=== PATIENT | male | born 1950 | race Caucasian/White ===

== ENCOUNTER → 2020-04-30 | Outpatient (CLI) | payer MEDICARE ==
--- NOTE | 2020-05-01 13:09 | ECHOF ---
Referral Reason:R01.1 murmur MEASUREMENTS -------- HEIGHT: 180.3 cm WEIGHT: 85.7 kg BP: IVSd: 1.3 cm (0.6 - 1.1) LVIDd: 4.2 cm (3.9 - 5.3) LVPWd: 1.8 cm (0.6 - 1.1) IVSs: 2.0 cm LVIDs: 2.7 cm LVPWs: 2.3 cm LAESV Index (A-L): 21.92 ml/m Ao Diam: 4.2 cm (2.0 - 3.7) AV Cusp: 2.4 cm (1.5 - 2.6) MV EXCURSION: 10.955 mm (> 18.000) MV EF SLOPE: 61 mm/s (70 - 150) EPSS: 0.7 cm MV E Moises: 1.18 m/s MV DecT: 96 ms MV A Moises: 0.80 m/s MV E/A Ratio: 1.47 AV maxP.49 mmHg AV maxP.49 mmHg AV meanP.71 mmHg AR PHT: 400 ms RAP: 5.00 mmHg RVSP: 41.34 mmHg FINDINGS -------- Sinus rhythm. This was a technically adequate study. The left ventricular size is normal. There is mild concentric left ventricular hypertrophy. Overa ll left ventricular systolic function is normal with, an EF between 55 - 60 %. The diastolic fillin g pattern is normal for the age of the patient 15.20. The right ventricle is normal in size. Normal LA size by volume 22+/-6 ml/m2. The right atrial size is normal. Interatrial and interventricular septum intact. There is moderate to severe aortic valve sclerosis. There is moderate aortic regurgitation. There is mild aortic stenosis present. Peak/mean gradient across the Aortic Valve is 20.49mmHg / 10.71mm Hg. There is trace mitral regurgitation. Mild tricuspid regurgitation present. There is mild pulmonary hypertension. The right ventricular systolic pressure, as measured by Doppler, is 41.34mmHg. There is no pulmonic regurgitation present. The aortic root is dilated measuring 4.2cm. Normal inferior vena cava with normal inspiratory collapse consistent with estimated right atrial pre ssure of 5 mmHg. There is no pericardial effusion. CONCLUSIONS -------- 1. The left ventricular size is normal. 2. There is mild concentric left ventricular hypertrophy. 3. Overall left ventricular systolic function is normal with, an EF between 55 - 60 %. 4. The diastolic filling pattern is normal for the age of the patient 15.20 5. There is moderate to severe aortic valve sclerosis. 6. There is moderate aortic regurgitation. 7. There is mild aortic stenosis present. 8. Peak/mean gradient across the Aortic Valve is 20.49mmHg / 10.71mmHg. 9. There is trace mitral regurgitation. 10. Mild tricuspid regurgitation present. 11. There is mild pulmonary hypertension. 12. The right ventricular systolic pressure, as measured by Doppler, is 41.34mmHg. 13. The aortic root is dilated measuring 4.2cm. CULINARY ARTIST: Yasmin Garcia RDCS
== END | disposition home or self-care (01) ==
LOC: RADECHMAIN 11:34
PROVIDERS: ATTEND Nurse Practitioner Family
DX: I08.2 Rheumatic disorders of both aortic and tricuspid valves (principal); I27.20 Pulmonary hypertension, unspecified; I77.810 Thoracic aortic ectasia
CPT/HCPCS: 93306

== ENCOUNTER 2021-07-01 15:37 | Inpatient (IN) | payer MEDICARE ==
[2021-07-01 16:12] LABS: Basophils % (A) 1 %; Eosinophils % (A) 0 %; HCT 43.1 % (39.0-53.0); HGB 15.4 gm/dL (13.0-17.5); Lymphocytes # (A) 0.2 k/uL (1.0-4.8); Lymphocytes % (A) 5 %; MCH 33.7 pg (25.0-35.0); MCHC 35.7 g/dL (31.0-37.0); MCV 94.3 fL (80.0-100.0); Mean Platelet Volume 8.4; Monocytes # (A) 0.2 k/uL (0-1.0); Monocytes % (A) 4 %; Neutrophils # (A) 3.8 k/uL (1.3-7.7); Neutrophils % (A) 87 %; Platelet Count 195 k/uL (150-450); RBC 4.58 m/uL (4.30-5.90); RDW 12.7 % (11.5-15.5); WBC 4.4 k/uL (3.8-10.6)
--- NOTE | 2021-07-01 16:13 | ED ---
General Adult HPI - General Chief complaint: GI Bleed Stated complaint: GI Bleed Time Seen by Provider: 07/01/21 15:41 Source: patient, EMS Mode of arrival: EMS Limitations: no limitations - History of Present Illness Initial comments: Dictation was produced using [employer] dictation software. please excuse any grammatical, word or spelling errors. Chief Complaint: 71-year-old male presents to the emergency department for melanotic stool History of Present Illness: Patient is a 71-year-old male is brought in by EMS. He reports that he is had melanotic stool daily for the last 7 days. Patient denies any medical problems. Doesn't take any and a coagulation medications. Patient is also found to be hypoxic with a room air saturation in the 80 percents. My nurse Asa patient on 4 L nasal cannula. Patient is a mild cough. Denies any shortness of breath. Patient is not taking any iron supplementation. Denies any abdominal pain or rectal pain. Daughter at the bedside reports that patient did appear very pale when EMS first arrived at the house. The ROS documented in this emergency department record has been reviewed and confirmed by me. Those systems with pertinent positive or negative responses have been documented in the HPI. All other systems are other negative and/or noncontributory. PHYSICAL EXAM: General Impression: Alert and oriented x3, not in acute distress HEENT: Normocephalic atraumatic, extra-ocular movements intact, pupils equal and reactive to light bilaterally, mucous membranes moist. Cardiovascular: Heart regular rate and rhythm Chest: Able to complete full sentences, no retractions, no tachypnea Abdomen: abdomen soft, non-tender, non-distended, no organomegaly Musculoskeletal: Pulses present and equal in all extremities, no peripheral edema Motor: no focal deficits noted Neurological: CN II-XII grossly intact, no focal motor or sensory deficits noted Skin: Intact with no visualized rashes Psych: Normal affect and mood Rectal exam: No gross blood he does have skin tags to his anus ED course: 71-year-old male with chief complaint of 7 days of melanotic stool. Vital signs upon arrival shows 105, A. fib with RVR, normal blood pressure, 94% on 4 L nasal cannula. His EKG shows A. fib. He denies any medical problems. Concerning for new onset A. fib She was hypoxic and required nasal cannula oxygen. His pulse oximetry improved with supplemental oxygen. CBC is unremarkable. Coag panel is negative. Hemoglobin is not decreased. Metabolic panel shows sodium 128. Troponin 0.028, BNP 1007-70. Still, but is positive. Rotavirus is detected. Chest x-ray shows pneumonia. Click or presentation consistent with COVID-19 pneumonia. Patient given Decadron Protonix. Given patient's new-onset A. fib and GI bleed we will withhold anticoagulation medications at this time ending d-dimer studies. Patient be admitted to [facility]. Case discussed with Dr. Mott EKG interpretation: Ventricular rate 105, A. fib with RVR, QRS 94, QTC 459. no QTC prolongation, no ST or T-wave changes noted. - Related Data Allergies Allergy/AdvReac Type Severity Reaction Status Date / Time No Known Allergies Allergy Verified 07/01/21 15:58 Review of Systems ROS Statement: Those systems with pertinent positive or pertinent negative responses have been documented in the HPI. ROS Other: All systems not noted in ROS Statement are negative. Past Medical History Past Medical History: No Reported History History of Any Multi-Drug Resistant Organisms: None Reported Past Surgical History: Hernia Repair Past Psychological History: No Psychological Hx Reported Smoking Status: Former smoker Past Alcohol Use History: None Reported General Exam Limitations: no limitations Course Vital Signs 07/01/21 07/01/21 15:39 15:43 Temperature 99.3 F Pulse Rate 96 Respiratory 18 Rate Blood Pressure 124/89 O2 Sat by Pulse 94 L Oximetry Medical Decision Making - Lab Data Result diagrams: 07/01/21 15:59 07/01/21 15:59 Lab Results 07/01/21 07/01/21 07/01/21 Range/Units 15:50 15:55 15:59 WBC 4.4 (3.8-10.6) k/uL RBC 4.58 (4.30-5.90) m/uL Hgb 15.4 (13.0-17.5) gm/dL Hct 43.1 (39.0-53.0) % MCV 94.3 (80.0-100.0) fL MCH 33.7 (25.0-35.0) pg MCHC 35.7 (31.0-37.0) g/dL RDW 12.7 (11.5-15.5) % Plt Count 195 (150-450) k/uL MPV 8.4 Neutrophils % 87 % Lymphocytes % 5 % Monocytes % 4 % Eosinophils % 0 % Basophils % 1 % Neutrophils # 3.8 (1.3-7.7) k/uL Lymphocytes # 0.2 L (1.0-4.8) k/uL Monocytes # 0.2 (0-1.0) k/uL Eosinophils # 0.0 (0-0.7) k/uL Basophils # 0.0 (0-0.2) k/uL PT (9.0-12.0) sec INR (<1.2) APTT (22.0-30.0) sec Sodium (137-145) mmol/L Potassium (3.5-5.1) mmol/L Chloride (98-107) mmol/L Carbon Dioxide (22-30) mmol/L Anion Gap mmol/L BUN (9-20) mg/dL Creatinine (0.66-1.25) mg/dL Est GFR (CKD-EPI)AfAm (>60 ml/min/1.73 sqM) Est GFR (CKD-EPI)NonAf (>60 ml/min/1.73 sqM) Glucose (74-99) mg/dL Calcium (8.4-10.2) mg/dL Magnesium (1.6-2.3) mg/dL Total Bilirubin (0.2-1.3) mg/dL AST (17-59) U/L ALT (4-49) U/L Alkaline Phosphatase (38-126) U/L Troponin I (0.000-0.034) ng/mL NT-Pro-B Natriuret Pep pg/mL Total Protein (6.3-8.2) g/dL Albumin (3.5-5.0) g/dL Stool Occult Blood (Negative) Coronavirus (PCR) (Not Detectd) Blood Type O Positive Blood Type Confirm O Positive Blood Type Recheck No Previous Record Bld Type Recheck Status CABO Indicated Antibody Screen NEGATIVE Spec Expiration Date 07/04/2021 - 234907/01/21 07/01/21 07/01/21 Range/Units 15:59 15:59 16:05 WBC (3.8-10.6) k/uL RBC (4.30-5.90) m/uL Hgb (13.0-17.5) gm/dL Hct (39.0-53.0) % MCV (80.0-100.0) fL MCH (25.0-35.0) pg MCHC (31.0-37.0) g/dL RDW (11.5-15.5) % Plt Count (150-450) k/uL MPV Neutrophils % % Lymphocytes % % Monocytes % % Eosinophils % % Basophils % % Neutrophils # (1.3-7.7) k/uL Lymphocytes # (1.0-4.8) k/uL Monocytes # (0-1.0) k/uL Eosinophils # (0-0.7) k/uL Basophils # (0-0.2) k/uL PT 11.9 (9.0-12.0) sec INR 1.1 (<1.2) APTT 23.6 (22.0-30.0) sec Sodium 128 L (137-145) mmol/L Potassium 3.8 (3.5-5.1) mmol/L Chloride 91 L (98-107) mmol/L Carbon Dioxide 29 (22-30) mmol/L Anion Gap 8 mmol/L BUN 20 (9-20) mg/dL Creatinine 0.67 (0.66-1.25) mg/dL Est GFR (CKD-EPI)AfAm >90 (>60 ml/min/1.73 sqM) Est GFR (CKD-EPI)NonAf >90 (>60 ml/min/1.73 sqM) Glucose 128 H (74-99) mg/dL Calcium 7.6 L (8.4-10.2) mg/dL Magnesium 2.2 (1.6-2.3) mg/dL Total Bilirubin 1.0 (0.2-1.3) mg/dL AST 104 H (17-59) U/L ALT 56 H (4-49) U/L Alkaline Phosphatase 22 L (38-126) U/L Troponin I 0.028 (0.000-0.034) ng/mL NT-Pro-B Natriuret Pep pg/mL Total Protein 5.3 L (6.3-8.2) g/dL Albumin 2.7 L (3.5-5.0) g/dL Stool Occult Blood (Negative) Coronavirus (PCR) (Not Detectd) Blood Type Blood Type Confirm Blood Type Recheck Bld Type Recheck Status Antibody Screen Spec Expiration Date 07/01/21 07/01/21 07/01/21 Range/Units 16:05 16:09 16:09 WBC (3.8-10.6) k/uL RBC (4.30-5.90) m/uL Hgb (13.0-17.5) gm/dL Hct (39.0-53.0) % MCV (80.0-100.0) fL MCH (25.0-35.0) pg MCHC (31.0-37.0) g/dL RDW (11.5-15.5) % Plt Count (150-450) k/uL MPV Neutrophils % % Lymphocytes % % Monocytes % % Eosinophils % % Basophils % % Neutrophils # (1.3-7.7) k/uL Lymphocytes # (1.0-4.8) k/uL Monocytes # (0-1.0) k/uL Eosinophils # (0-0.7) k/uL Basophils # (0-0.2) k/uL PT (9.0-12.0) sec INR (<1.2) APTT (22.0-30.0) sec Sodium (137-145) mmol/L Potassium (3.5-5.1) mmol/L Chloride (98-107) mmol/L Carbon Dioxide (22-30) mmol/L Anion Gap mmol/L BUN (9-20) mg/dL Creatinine (0.66-1.25) mg/dL Est GFR (CKD-EPI)AfAm (>60 ml/min/1.73 sqM) Est GFR (CKD-EPI)NonAf (>60 ml/min/1.73 sqM) Glucose (74-99) mg/dL Calcium (8.4-10.2) mg/dL Magnesium (1.6-2.3) mg/dL Total Bilirubin (0.2-1.3) mg/dL AST (17-59) U/L ALT (4-49) U/L Alkaline Phosphatase (38-126) U/L Troponin I (0.000-0.034) ng/mL NT-Pro-B Natriuret Pep 1770 pg/mL Total Protein (6.3-8.2) g/dL Albumin (3.5-5.0) g/dL Stool Occult Blood Positive (Negative) Coronavirus (PCR) Detected A (Not Detectd) Blood Type Blood Type Confirm Blood Type Recheck Bld Type Recheck Status Antibody Screen Spec Expiration Date Critical Care Time Critical Care Time: Yes Total Critical Care Time: 33 Disposition Clinical Impression: COVID-19, New onset a-fib, GI bleed Disposition: ADMITTED IP TO THIS [facility] Condition: Critical Referrals: None,Stated [Primary Care Provider] - 1-2 days
[2021-07-01 16:23] LABS: ALT 56 U/L (4-49); AST 104 U/L (17-59); African American GFR (CKD) >90 (>60 ml/min/1.73 sqM); Albumin 2.7 g/dL (3.5-5.0); Alkaline Phosphatase 22 U/L (38-126); Anion Gap 8 mmol/L; Blood Urea Nitrogen 20 mg/dL (9-20); Calcium 7.6 mg/dL (8.4-10.2); Carbon Dioxide 29 mmol/L (22-30); Chloride 91 mmol/L (98-107); Glucose 128 mg/dL (74-99); Magnesium 2.2 mg/dL (1.6-2.3); Non-African American GFR(CKD) >90 (>60 ml/min/1.73 sqM); Potassium 3.8 mmol/L (3.5-5.1); Sodium 128 mmol/L (137-145); Total Protein 5.3 g/dL (6.3-8.2)
[2021-07-01 16:27] LABS: INR 1.1 (<1.2); Partial Thromboplastin Time 23.6 sec (22.0-30.0); Prothrombin Time 11.9 sec (9.0-12.0)
--- NOTE | 2021-07-01 16:34 | XR ---
EXAMINATION TYPE: XR chest 1V portable DATE OF EXAM: 07/01/2021 COMPARISON: None HISTORY: Hypoxia TECHNIQUE: Single frontal view of the chest is obtained. FINDINGS: Patient is rotated. There is airspace disease involving most of the left lung, some patchy basilar density is present on the right as well. There is no evident pneumothorax or pleural effusio n. Heart is thought to be enlarged. There are overlying artifacts. IMPRESSION: Correlate for pneumonia, congestive heart failure, follow-up is recommended.
[2021-07-01] MEDS ORDERED: SODIUM CHLORIDE 0.9% 1,000 ML IV STA (16:47)
[2021-07-01] MEDS ORDERED: DEXAMETHASONE SOD PHOSPHATE 10 MG/ML 1 ML VIAL IV STA (17:17)
--- NOTE | 2021-07-01 19:17 | CT ---
EXAMINATION TYPE: CT angio chest DATE OF EXAM: 07/01/2021 6:31 PM COMPARISON: HISTORY: Elevated d-dimer and covid. CT DLP: 573.9 mGycm Automated exposure control for dose reduction was used. CONTRAST: CTA scan of the thorax is performed with IV Contrast, patient injected with 80ml mL of Isovue 370, pu lmonary embolism protocol. MIP images are created and reviewed. FINDINGS: Motion limits evaluation Pulmonary Artery: There is no evidence for a filling defect within the pulmonary vasculature to sugge st acute pulmonary embolism. The pulmonary artery is upper limits of normal at 3.2 cm Lungs/Pleura: No evidence of focal consolidation, pleural effusion or pneumothorax. Peripheral ground glass opacities are seen throughout the lungs most pronounced in the left lung. Airway: Patent and grossly unremarkable. Heart: Within normal limits for size. Vasculature: No evidence of aortic aneurysm. Mediastinum: Lymph nodes are seen scattered throughout the mediastinum example includes a AP window l ymph node measuring up to 1.1 cm. Musculoskeletal: Mild degenerative disc disease changes are present throughout the thoracolumbar spin e. Soft Tissues: Unremarkable. Lower neck: No significant findings. Upper Abdomen: No significant findings. IMPRESSION: 1. No evidence of central pulmonary embolism. Limited evaluation of the segmental and subsegmental br anches. 2. Peripheral groundglass pulmonary opacities consistent with atypical pulmonary infection such as CO VID-19. 3. Reactive mediastinal lymphadenopathy likely secondary to #2.
[2021-07-01] MEDS ORDERED: NALOXONE 0.4 MG/ML 1 ML VIAL IV PRN (19:29)
[2021-07-01] MEDS ORDERED: Acetaminophen-Codeine 300-30mg TAB PO PRN (19:34)
[2021-07-01] MEDS ORDERED: ALBUTEROL HFA INHALER INHALATION PRN (19:34)
[2021-07-01] MEDS ORDERED: ACETAMINOPHEN TAB 325 MG TAB PO PRN (19:34)
[2021-07-01] MEDS ORDERED: ONDANSETRON 4 MG/2 ML VIAL IVP PRN (19:34)
[2021-07-01] MEDS ORDERED: LORazepam 2 MG/ML INJ IV PRN ×3 (19:40)
[2021-07-01] MEDS ORDERED: THIAMINE 100 MG/ML 2 ML VIAL IM STA (19:40)
--- NOTE | 2021-07-01 19:45 | P.HPIM ---
History of Present Illness H&P Date: 07/01/21 Chief Complaint: dark stools Patient is a 71-year-old male with prior tobacco abuse who presented to Hospital secondary to dark stools for the last 7 days. On arrival to the ER via EMS he was found to be hypoxic with a room air sat of 80% and then required 4 L nasal cannula. Remainder of vital signs are within normal limits. D-dimer elevated at 2.32, sodium 128, glucose 128, calcium 7.6, AST 104, ALT 56, troponin negative at 0.0-8. COVID-19 PCR was positive. Chest x-ray demonstrates bilateral interstitial infiltrates left greater than right with significant air bronchograms. EKG demonstrated atrial fibrillation with rapid ventricular response at 105. He was given a dose of Decadron IV fluids. Arrangements were made for admission. He was found have an elevated d-dimer and underwent a CTA of the chest which is negative for pulmonary embolism. Patient seen and examined at bedside in the emergency department. He states that for the last 7 days he had noted dark stools that were watery to tarry in nature. Slightly more frequent than normal. He also had noted increasing shortness of breath worse with exertion and better with rest. Cough productive of clear sputum. Lightheadedness and dizziness when being up and standing. Nasal congestion. Denies runny nose or stuffy nose. No loss of taste or smell. No abdominal pain. He does complain that he has been sleeping more often than normal and feeling very fatigued and weak. He denies any loss of appetite and states he has been eating and drinking normally. He has been taking Pepto- Bismol although he will not quantify to me how often, how much, or for what reasons. He does state he has had acid reflux in the past. He denies any known history of atrial fibrillation. He states he [facility] with [facility]. He does not live with anyone else. He has not vaccinated. He denies any known COVID-19 exposures. He states he does not drink other than socially, daughter indicates that he drinks more frequently it is very hard to get patient to elaborate on his alcohol use. Pertinent positives and negatives as discussed in HPI, a complete review of systems was performed and all other systems are negative. General: Ill appearing, moderate distress, appears at stated age Derm: warm, dry Head: atraumatic, normocephalic, symmetric Eyes: EOMI, no lid lag, anicteric sclera, pupils equal round reactive to light ENT: Nose and ears atraumatic, no thrush, no pharyngeal erythema Neck: No thyromegaly, no cervical lymphadenopathy, trachea midline, supple Mouth: no lip lesion, mucus membranes dry Cardiovascular: S1S2 regular but tachycardic, no murmur, positive posterior tibial pulse bilateral, no edema, capillary refill less than 2 seconds Lungs: Rhonchorous bilaterally, 3 word conversational dyspnea, + sternal retractions as well as belly breathing Abdominal: soft, nontender to palpation, no guarding, no appreciable organomegaly, normal bowel sounds Ext: no gross muscle atrophy, muscle strength muscle strength 5 out of 5 in all 4 extremities, no contractures Neuro: CN II-XI grossly intact, light touch intact all 4 extremities, finger to nose within normal limits, Psych: Alert, oriented, appropriate affect COVID-19 pneumonitis, and unvaccinated individual Acute hypoxic respiratory failure --Decadron, albuterol every 6 and when necessary -Zinc, vitamin C, vitamin D -Consult pulmonary -Wean O2 as able -Not a candidate for Remdesivir secondary to duration of symptoms -Pulmonary hygiene -Follow inflammatory markers New-onset A. fib with rapid ventricular response -Hold off on heparin drip until a.m. once GI bleed has been ruled out -Telemetry -Start metoprolol 25 twice a day -Consult cardio -Echocardiogram in a.m. Dark stools -Patient is fecal occult blood positive however given hemoglobin of 15.4 doubt clinically significant GI bleed more likely secondary to Pepto-Bismol -Serial CBCs -Surgery consult in a.m. with decreased hemoglobin -Clear liquid diet and nothing by mouth after midnight Hyponatremia, undetermined etiology -Check serum sodium, urine sodium, urine and serum osmolality -IV fluids -If worsens consult nephro -Suspect secondary to possible alcohol use versus dehydration Transaminitis -Likely secondary to alcohol use versus COVID-19 -Repeat liver enzymes in a.m. EtOH abuse -States no alcohol and the last week -[facility] protocol -Thiamine and folic acid Poor overall prognosis The patient is admitted with an anticipated greater than 2 midnight stay for evaluation of COVID-19 Surrogate decision-maker: Daughter CODE STATUS: Patient is unable to decide on CODE STATUS, and for that he'll be full code until we are able to discuss this further DVT prophylaxis: Lovenox Discussed with: Patient, nursing, ED physician, daughter Anticipated discharge date: Undetermined Anticipated discharge place: Home A total of 75 minutes was spent on the care of this complex patient more than 50% of the time was spent in counseling and care coordination. Past Medical History Past Medical History: GERD/Reflux History of Any Multi-Drug Resistant Organisms: None Reported Past Surgical History: Hernia Repair Past Psychological History: No Psychological Hx Reported Smoking Status: Former smoker Past Alcohol Use History: Heavy Past Drug Use History: None Reported - Past Family History Father Family Medical History: Myocardial Infarction ([place]) Additional Family Medical History / Comment(s): [place] age 55 Mother Family Medical History: Diabetes Mellitus Medications and Allergies Home Medications Medication Instructions Recorded Confirmed Type No Known Home Medications 07/01/21 07/01/21 History Allergies Allergy/AdvReac Type Severity Reaction Status Date / Time No Known Allergies Allergy Verified 07/01/21 17:46 Physical Exam Osteopathic Statement: *. No significant issues noted on an osteopathic struct ural exam other than those noted in the History and Physical/Consult. Vitals: Vital Signs Temp Pulse Resp BP Pulse Ox 07/01/21 17:23 100 18 133/82 92 L 07/01/21 15:43 99.3 F 07/01/21 15:39 96 18 124/89 94 L Intake and Output 07/01/21 07/01/21 07/01/21 06:59 14:59 22:59 Other: Weight 81.647 kg Results CBC & Chem 7: 07/01/21 15:59 07/01/21 15:59 Labs: Abnormal Lab Results - Last 24 Hours (Table) 07/01/21 07/01/21 07/01/21 Range/Units 15:59 15:59 15:59 Lymphocytes # 0.2 L (1.0-4.8) k/uL D-Dimer 2.32 H (<0.60) mg/L FEU Sodium 128 L (137-145) mmol/L Chloride 91 L (98-107) mmol/L Glucose 128 H (74-99) mg/dL Calcium 7.6 L (8.4-10.2) mg/dL AST 104 H (17-59) U/L ALT 56 H (4-49) U/L Alkaline Phosphatase 22 L (38-126) U/L Total Protein 5.3 L (6.3-8.2) g/dL Albumin 2.7 L (3.5-5.0) g/dL Coronavirus (PCR) (Not Detectd) 07/01/21 Range/Units 16:09 Lymphocytes # (1.0-4.8) k/uL D-Dimer (<0.60) mg/L FEU Sodium (137-145) mmol/L Chloride (98-107) mmol/L Glucose (74-99) mg/dL Calcium (8.4-10.2) mg/dL AST (17-59) U/L ALT (4-49) U/L Alkaline Phosphatase (38-126) U/L Total Protein (6.3-8.2) g/dL Albumin (3.5-5.0) g/dL Coronavirus (PCR) Detected A (Not Detectd)
[2021-07-01 20:35] LABS: C Reactive Protein 20.1 mg/dL (<1.0)
[2021-07-01] MEDS: PANTOPRAZOLE 40 MG/10 ML VIAL IVP SCH (20:43)
[2021-07-01] MEDS: METOPROLOL TARTRATE 25 MG TAB PO SCH (20:44)
[2021-07-01] MEDS: LACTATED RINGERS 1,000 ML IV SCH (20:44)
[2021-07-01] MEDS: ALBUTEROL HFA INHALER INHALATION SCH (20:47)
[2021-07-01 21:34] LABS: Chloride 93 mmol/L (98-107)
[2021-07-01 22:09] LABS: African American GFR (CKD) >90 (>60 ml/min/1.73 sqM); Anion Gap 7 mmol/L; Blood Urea Nitrogen 18 mg/dL (9-20); Calcium 7.8 mg/dL (8.4-10.2); Carbon Dioxide 29 mmol/L (22-30); Glucose 144 mg/dL (74-99); Non-African American GFR(CKD) >90 (>60 ml/min/1.73 sqM); Potassium 3.7 mmol/L (3.5-5.1); Sodium 129 mmol/L (137-145)
[2021-07-02 02:06] LABS: African American GFR (CKD) >90 (>60 ml/min/1.73 sqM); Anion Gap 7 mmol/L; Blood Urea Nitrogen 20 mg/dL (9-20); Calcium 7.8 mg/dL (8.4-10.2); Carbon Dioxide 27 mmol/L (22-30); Chloride 97 mmol/L (98-107); Glucose 158 mg/dL (74-99); Non-African American GFR(CKD) >90 (>60 ml/min/1.73 sqM); Potassium 3.5 mmol/L (3.5-5.1); Sodium 131 mmol/L (137-145)
[2021-07-02] MEDS: LACTATED RINGERS 1,000 ML IV SCH ×2 (06:34→20:43)
[2021-07-02 07:05] LABS: Basophils % (A) 1 %; Eosinophils % (A) 0 %; HCT 45.8 % (39.0-53.0); HGB 15.5 gm/dL (13.0-17.5); Lymphocytes # (A) 0.4 k/uL (1.0-4.8); Lymphocytes % (A) 8 %; MCH 32.9 pg (25.0-35.0); MCHC 33.8 g/dL (31.0-37.0); MCV 97.3 fL (80.0-100.0); Mean Platelet Volume 8.3; Monocytes # (A) 0.1 k/uL (0-1.0); Monocytes % (A) 2 %; Neutrophils # (A) 3.5 k/uL (1.3-7.7); Neutrophils % (A) 86 %; Platelet Count 224 k/uL (150-450); RBC 4.71 m/uL (4.30-5.90); RDW 12.8 % (11.5-15.5); WBC 4.1 k/uL (3.8-10.6)
[2021-07-02 07:22] LABS: INR 1.1 (<1.2); Prothrombin Time 11.7 sec (9.0-12.0)
[2021-07-02 07:41] LABS: ALT 61 U/L (4-49); AST 79 U/L (17-59); African American GFR (CKD) >90 (>60 ml/min/1.73 sqM); Albumin 2.6 g/dL (3.5-5.0); Alkaline Phosphatase 31 U/L (38-126); Anion Gap 9 mmol/L; Blood Urea Nitrogen 20 mg/dL (9-20); Calcium 8.1 mg/dL (8.4-10.2); Carbon Dioxide 29 mmol/L (22-30); Chloride 95 mmol/L (98-107); Glucose 158 mg/dL (74-99); LDH 1591 U/L (313-618); Magnesium 2.8 mg/dL (1.6-2.3); Non-African American GFR(CKD) >90 (>60 ml/min/1.73 sqM); Potassium 3.6 mmol/L (3.5-5.1); Sodium 133 mmol/L (137-145); Total Bilirubin 0.8 mg/dL (0.2-1.3); Total Protein 5.3 g/dL (6.3-8.2)
[2021-07-02] MEDS: ALBUTEROL HFA INHALER INHALATION SCH ×4 (08:01→20:17)
[2021-07-02] MEDS: METOPROLOL TARTRATE 25 MG TAB PO SCH ×2 (08:29→20:44)
[2021-07-02] MEDS: ASCORBIC ACID 500 MG TAB PO SCH (09:00)
[2021-07-02] MEDS: FOLIC ACID 1 MG TAB PO SCH (09:00)
[2021-07-02] MEDS ORDERED: ENOXAPARIN 40 MG/0.4 ML SYRINGE SQ SCH (09:00)
[2021-07-02] MEDS: DEXAMETHASONE SOD PHOSPHATE 10 MG/ML 1 ML VIAL IV SCH (09:01)
[2021-07-02] MEDS: CHOLECALCIFEROL 25 MCG (1000 IU) TABLET PO SCH (09:01)
[2021-07-02] MEDS: PANTOPRAZOLE 40 MG/10 ML VIAL IVP SCH ×2 (09:05→20:43)
[2021-07-02] MEDS: THIAMINE 100 MG TAB PO SCH (12:07)
[2021-07-02] MEDS: ZINC SULFATE 220 MG CAP PO SCH (12:08)
[2021-07-02] MEDS: FUROSEMIDE 10 MG/ML 2 ML VIAL IV SCH ×2 (12:08→20:44)
--- NOTE | 2021-07-02 13:04 | P.CNPUL ---
History of Present Illness Consult date: 07/02/21 Requesting physician: Isaura Morales Reason for consult: dyspnea, hypoxemia, abnormal CXR/CT Chief complaint: Shortness of breath cough congestion History of present illness: This is a 71-year-old gentleman with no significant past medical history. He is a former smoker. No home medications. He presented here to the emergency room yesterday with bloody bowel movements for the past 7 days. He was also found to be hypoxemic with O2 saturations in the 80s. His daughter about that the pat ient appeared quite pale as well. White count 4.4. Hemoglobin 15.5. Lymphocytes 0.4. D-dimer 2.79. Sodium 133. Potassium 3.6. Creatinine 0.76. Glucose 158. Ferritin or thousand 819. AST 79. ALT 61. LDH 1591. C-reactive protein 19.0. Stool for occult blood was positive. Colbert virus by PCR also positive. Chest x-ray shows bilateral airspace disease. CT angiogram revealed no evidence of pulmonary embolism. There is peripheral groundglass pulmonary opacities consistent with COVID-19 pneumonia. Reactive mediastinal lymphadenopathy. He is seen today in the emergency room. He is currently sitting up in a stretcher. Awake and alert in no acute distress. He is requiring 9 L high flow nasal cannula to maintain O2 saturation at 88%. There was increased to 10 L now. The patient is not vaccinated. His symptoms started on 06/18/2021. Review of Systems REVIEW OF SYSTEMS: CONSTITUTIONAL: Denies weakness. Denies any recent significant weight loss or weight gain. EYES: Denies change in vision. EARS, NOSE, MOUTH, THROAT: Denies headaches, denies sore throat. CARDIOVASCULAR: Denies chest pain, palpitations or syncopal episodes. RESPIRATORY: Positive for shortness of breath, cough, congestion no hemoptysis. GASTROINTESTINAL: Positive for dark bloody stools GENITOURINARY: Denies hematuria, denies infections. MUSKULOSKELETAL: Denies pain, denies swelling. INTEGUMENTARY: Denies rash, denies eczema. NEUROLOGICAL: Denies recent memory loss, no recent seizure activity. PSYCHIATRIC: Denies anxiety, denies depression. HEMATOLOGIC/LYMPHATIC: Denies anemia, denies enlarged lymph nodes. Past Medical History Past Medical History: GERD/Reflux Additional Past Medical History / Comment(s): Murmur, ETOH abuse. History of Any Multi-Drug Resistant Organisms: None Reported Past Surgical History: Hernia Repair Additional Past Surgical History / Comment(s): L inguinal hernia repair. Past Anesthesia/Blood Transfusion Reactions: No Reported Reaction Smoking Status: Former smoker - Past Family History Father Family Medical History: Myocardial Infarction ([place]) Additional Family Medical History / Comment(s): Father of a PA age 55 Mother Family Medical History: Diabetes Mellitus Medications and Allergies Home Medications Medication Instructions Recorded Confirmed Type No Known Home Medications 07/01/21 07/01/21 History Allergies Allergy/AdvReac Type Severity Reaction Status Date / Time No Known Allergies Allergy Verified 07/01/21 17:46 Physical Exam Vitals: Vital Signs Temp Pulse Resp BP Pulse Ox 07/02/21 10:09 110 H 18 113/74 90 L 07/02/21 06:02 76 17 112/70 91 L 07/02/21 02:37 84 17 106/78 91 L 07/01/21 23:17 94 L 07/01/21 23:13 92 L 07/01/21 22:59 97.7 F 07/01/21 22:58 76 18 123/64 94 L 07/01/21 20:45 103 H 20 118/83 94 L 07/01/21 17:23 100 18 133/82 92 L 07/01/21 15:43 99.3 F 07/01/21 15:39 96 18 124/89 94 L Intake and Output 07/01/21 07/02/21 07/02/21 22:59 06:59 14:59 Other: Weight 81.647 kg 81.647 kg GENERAL EXAM: Alert, 71-year-old gentleman, on 10 L high flow nasal cannula, comfortable in no apparent distress. HEAD: Normocephalic. EYES: Normal reaction of pupils, equal size. NOSE: Clear with pink turbinates. THROAT: No erythema or exudates. NECK: No masses, no JVD. CHEST: No chest wall deformity. LUNGS: Equal air entry with crackles in the bilateral bases. CVS: S1 and S2 normal with no audible murmur, regular rhythm. ABDOMEN: No hepatosplenomegaly, normal bowel sounds, no guarding or rigidity. SPINE: No scoliosis or deformity SKIN: No rashes CENTRAL NERVOUS SYSTEM: No focal deficits, tone is normal in all 4 extremities. EXTREMITIES: There is no peripheral edema. No clubbing, no cyanosis. Peripheral pulses are intact. Results - Laboratory Findings CBC and BMP: 07/02/21 06:07 07/02/21 06:07 PT/INR, D-dimer PT 11.7 sec (9.0-12.0) 07/02/21 06:07 INR 1.1 (<1.2) 07/02/21 06:07 D-Dimer 2.79 mg/L FEU (<0.60) H 07/02/21 06:07 Abnormal lab findings: Abnormal Labs 07/01/21 07/01/21 07/01/21 15:59 15:59 15:59 Lymphocytes # 0.2 L D-Dimer 2.32 H Sodium 128 L Chloride 91 L Creatinine Glucose 128 H Calcium 7.6 L Magnesium Ferritin AST 104 H ALT 56 H Alkaline Phosphatase 22 L Lactate Dehydrogenase C-Reactive Protein Total Protein 5.3 L Albumin 2.7 L Procalcitonin Coronavirus (PCR) 07/01/21 07/01/21 07/01/21 15:59 15:59 16:09 Lymphocytes # D-Dimer Sodium Chloride Creatinine Glucose Calcium Magnesium Ferritin 4756.0 H AST ALT Alkaline Phosphatase Lactate Dehydrogenase 1788 H C-Reactive Protein 20.1 H Total Protein Albumin Procalcitonin 0.23 H Coronavirus (PCR) Detected A 07/01/21 07/02/21 07/02/21 19:40 01:30 06:07 Lymphocytes # 0.4 L D-Dimer Sodium 129 L 131 L Chloride 93 L 97 L Creatinine 0.59 L Glucose 144 H 158 H Calcium 7.8 L 7.8 L Magnesium Ferritin AST ALT Alkaline Phosphatase Lactate Dehydrogenase C-Reactive Protein Total Protein Albumin Procalcitonin Coronavirus (PCR) 07/02/21 07/02/21 06:07 06:07 Lymphocytes # D-Dimer 2.79 H Sodium 133 L Chloride 95 L Creatinine Glucose 158 H Calcium 8.1 L Magnesium 2.8 H Ferritin 4819.0 H AST 79 H ALT 61 H Alkaline Phosphatase 31 L Lactate Dehydrogenase 1591 H C-Reactive Protein 19.0 H Total Protein 5.3 L Albumin 2.6 L Procalcitonin Coronavirus (PCR) - Diagnostic Findings Chest x-ray: image reviewed CT scan - chest: image reviewed Assessment and Plan Assessment: 1 Acute hypoxemic respiratory failure secondary to COVID-19 pneumonia. Not vaccinated. Symptoms started 06/18/2021. Outside the window for Remdesivir. Requiring 10 L high flow nasal cannula. Her calcitonin 0.23. 2 Elevated inflammatory markers secondary to above 3 Melanotic stools with positive stool for occult blood. Current hemoglobin 15.5. 4 Mild transaminitis secondary to above 5 Hyponatremia 6 Daily alcohol use 7 Former smoker Plan: The patient was seen and evaluated Chest x-ray, CAT scans and labs reviewed Initiated on Lovenox, Decadron, vitamin supplements Outside the window for Remdesivir Titrate the FiO2 as tolerated We will continue to follow and make further recommendations based on his clinical status I, the cosigning physician, performed a history & physical examination of the patient. Lungs sounds coarse crackles in the bilateral bases. Maintaining good O2 saturations in the 90s on 10 L high flow nasal cannula. I discussed the assessment and plan of care with my nurse practitioner, Patricia Castro. I attest to the above consultation as dictated by her. Time with Patient: Greater than 30
--- NOTE | 2021-07-02 13:13 | P.PN ---
Subjective Progress Note Date: 07/02/21 Principal diagnosis: shortness of breath Patient is a 71-year-old male with prior tobacco abuse who presented to Hospital secondary to dark stools for the last 7 days. On arrival to the ER via EMS he was found to be hypoxic with a room air sat of 80% and then required 4 L nasal cannula. Remainder of vital signs are within normal limits. D-dimer elevated at 2.32, sodium 128, glucose 128, calcium 7.6, AST 104, ALT 56, troponin negative at 0.0-8. COVID-19 PCR was positive. Chest x-ray demonstrates bilateral interstitial infiltrates left greater than right with significant air bronchograms. EKG demonstrated atrial fibrillation with rapid ventricular re sponse at 105. He was given a dose of Decadron IV fluids. Arrangements were made for admission. He was found have an elevated d-dimer and underwent a CTA of the chest which is negative for pulmonary embolism. Patient seen and examined at bedside. Continues to have some diarrhea, the color is getting mill oiler. Denies any nausea or vomiting. Tolerated his liquid diet well. Denies any abdominal pain. Breathing is slightly better than yesterday. Feeling hungry. General: ill appering, mild distress, appears at stated age Derm: warm, dry Head: atraumatic, normocephalic, symmetric Eyes: EOMI, no lid lag, anicteric sclera Mouth: no lip lesion, mucus membranes moist Cardiovascular: S1S2 reg, no murmur, positive posterior tibial pulse bilateral, Lungs: course bs bilateral, belly breathing, no conversational dyspnea Abdominal: soft, nontender to palpation, no guarding, no appreciable or ganomegaly Ext: no gross muscle atrophy, no edema, no contractures Neuro: CN II-XI grossly intact, no focal neuro deficits Psych: Alert, oriented, appropriate affect COVID-19 pneumonitis, and unvaccinated individual Acute hypoxic respiratory failure -Decadron, albuterol every 6 and when necessary -Zinc, vitamin C, vitamin D -pulmonary recs -Wean O2 as able -Not a candidate for Remdesivir secondary to duration of symptoms -Pulmonary hygiene -Follow inflammatory markers P. New-onset A. fib with rapid ventricular response, now in NSR -hold of anticoagulation due to hx of drinking CHADsVASC 1, ASA on discharge -Telemetry - metoprolol 25 twice a day -cardio recs -Echocardiogram pending Dark stools -Patient is fecal occult blood positive however given hemoglobin of 15.4 doubt clinically significant GI bleed more likely secondary to Pepto-Bismol - GI bleed ruled out, advanced to a regular diet Hyponatremia, due to dehydration, improving -IV fluids - repeat in AM Transaminitis, improving -Likely secondary to alcohol use versus COVID-19 -Repeat liver enzymes in a.m. EtOH abuse -States no alcohol and the last week -[facility] protocol -Thiamine and folic acid DVT prophylaxis: Lovenox Discussed with: Patient, nursing, Anticipated discharge date: Undetermined Anticipated discharge place: Home A total of 35 minutes was spent on the care of this complex patient more than 50% of the time was spent in counseling and care coordination. Objective - Vital Signs Vital signs: Vital Signs Temp 97.7 F 07/01/21 22:59 Pulse 110 H 07/02/21 10:09 Resp 18 07/02/21 10:09 BP 113/74 07/02/21 10:09 Pulse Ox 90 L 07/02/21 10:09 Intake & Output 07/01/21 07/02/21 07/02/21 18:59 06:59 18:59 Weight 81.647 kg 81.647 kg - Labs CBC & Chem 7: 07/02/21 06:07 07/02/21 06:07 Labs: Abnormal Lab Results - Last 24 Hours (Table) 07/01/21 07/01/21 07/01/21 Range/Units 15:59 15:59 15:59 Lymphocytes # 0.2 L (1.0-4.8) k/uL D-Dimer 2.32 H (<0.60) mg/L FEU Sodium 128 L (137-145) mmol/L Chloride 91 L (98-107) mmol/L Creatinine (0.66-1.25) mg/dL Glucose 128 H (74-99) mg/dL Calcium 7.6 L (8.4-10.2) mg/dL Magnesium (1.6-2.3) mg/dL Ferritin (22.0-322.0) ng/mL AST 104 H (17-59) U/L ALT 56 H (4-49) U/L Alkaline Phosphatase 22 L (38-126) U/L Lactate Dehydrogenase (313-618) U/L C-Reactive Protein (<1.0) mg/dL Total Protein 5.3 L (6.3-8.2) g/dL Albumin 2.7 L (3.5-5.0) g/dL Procalcitonin (0.02-0.09) ng/mL Coronavirus (PCR) (Not Detectd) 07/01/21 07/01/21 07/01/21 Range/Units 15:59 15:59 16:09 Lymphocytes # (1.0-4.8) k/uL D-Dimer (<0.60) mg/L FEU Sodium (137-145) mmol/L Chloride (98-107) mmol/L Creatinine (0.66-1.25) mg/dL Glucose (74-99) mg/dL Calcium (8.4-10.2) mg/dL Magnesium (1.6-2.3) mg/dL Ferritin 4756.0 H (22.0-322.0) ng/mL AST (17-59) U/L ALT (4-49) U/L Alkaline Phosphatase (38-126) U/L Lactate Dehydrogenase 1788 H (313-618) U/L C-Reactive Protein 20.1 H (<1.0) mg/dL Total Protein (6.3-8.2) g/dL Albumin (3.5-5.0) g/dL Procalcitonin 0.23 H (0.02-0.09) ng/mL Coronavirus (PCR) Detected A (Not Detectd) 07/01/21 07/02/21 07/02/21 Range/Units 19:40 01:30 06:07 Lymphocytes # 0.4 L (1.0-4.8) k/uL D-Dimer (<0.60) mg/L FEU Sodium 129 L 131 L (137-145) mmol/L Chloride 93 L 97 L (98-107) mmol/L Creatinine 0.59 L (0.66-1.25) mg/dL Glucose 144 H 158 H (74-99) mg/dL Calcium 7.8 L 7.8 L (8.4-10.2) mg/dL Magnesium (1.6-2.3) mg/dL Ferritin (22.0-322.0) ng/mL AST (17-59) U/L ALT (4-49) U/L Alkaline Phosphatase (38-126) U/L Lactate Dehydrogenase (313-618) U/L C-Reactive Protein (<1.0) mg/dL Total Protein (6.3-8.2) g/dL Albumin (3.5-5.0) g/dL Procalcitonin (0.02-0.09) ng/mL Coronavirus (PCR) (Not Detectd) 07/02/21 07/02/21 Range/Units 06:07 06:07 Lymphocytes # (1.0-4.8) k/uL D-Dimer 2.79 H (<0.60) mg/L FEU Sodium 133 L (137-145) mmol/L Chloride 95 L (98-107) mmol/L Creatinine (0.66-1.25) mg/dL Glucose 158 H (74-99) mg/dL Calcium 8.1 L (8.4-10.2) mg/dL Magnesium 2.8 H (1.6-2.3) mg/dL Ferritin 4819.0 H (22.0-322.0) ng/mL AST 79 H (17-59) U/L ALT 61 H (4-49) U/L Alkaline Phosphatase 31 L (38-126) U/L Lactate Dehydrogenase 1591 H (313-618) U/L C-Reactive Protein 19.0 H (<1.0) mg/dL Total Protein 5.3 L (6.3-8.2) g/dL Albumin 2.6 L (3.5-5.0) g/dL Procalcitonin (0.02-0.09) ng/mL Coronavirus (PCR) (Not Detectd)
[2021-07-02] MEDS ORDERED: POTASSIUM CHLORIDE ER 20 MEQ TAB.ER PO STA (18:33)
[2021-07-03] MEDS: ALBUTEROL HFA INHALER INHALATION SCH ×5 (02:24→20:17)
--- NOTE | 2021-07-03 08:05 | P.CRDCN ---
History of Present Illness Consult date: 07/03/21 Chief complaint: Shortness of breath History of present illness: This is a 18-year-old patient with no significant past medical history who we co nsulted to see for further evaluation of atrial fibrillation with rapid ventricular response which seems to be new the diagnosis to the patient. The patient presented with a one week history of being short of breath. When he was seen in the emergency department he was hypoxic with oxygen saturation in the 80s. The patient reports no symptoms of chest pain or chest discomfort nor dizziness or lightheadedness nor feeling of heart racing or fluttering. He was tested positive for COVID-19 infection. We consulted to see the patient mainly because of atrial fibrillation with rapid ventricular response which seems to be new with the diagnosis to the patient. The patient continues to be in atrial fibrillation with heart rate in the 80s. He was started on beta moy. Regarding anticoagulation currently he is on Lovenox twice a day. An echo was ordered and still pending. The patient reports no prior history of diabetes or hypertension or dyslipidemia and as a matter of fact he was not receiving any medications at home. Workup was reviewed. The EKG showed atrial fibrillation. D-dimer came in to be elevated but subsequently computed tomography scan of the chest showed no PE. The chest x-ray showed bilateral interstitial infiltrate. The blood work was reviewed as well. Currently the patient is hypoxic and he is requiring about 8 L of oxygen Past Medical History Past Medical History: GERD/Reflux Additional Past Medical History / Comment(s): Murmur, ETOH abuse. History of Any Multi-Drug Resistant Organisms: None Reported Past Surgical History: Hernia Repair Additional Past Surgical History / Comment(s): L inguinal hernia repair. Past Anesthesia/Blood Transfusion Reactions: No Reported Reaction Smoking Status: Former smoker - Past Family History Father Family Medical History: Myocardial Infarction ([place]) Additional Family Medical History / Comment(s): Father of a [place] age 55 Mother Family Medical History: Diabetes Mellitus Medications and Allergies Home Medications Medication Instructions Recorded Confirmed Type No Known Home Medications 07/01/21 07/01/21 History Allergies Allergy/AdvReac Type Severity Reaction Status Date / Time No Known Allergies Allergy Verified 07/01/21 17:46 Physical Exam Vitals: Vital Signs Temp Pulse Pulse Resp BP BP Pulse Ox 07/03/21 04:35 97.5 F L 80 91 H 106/68 91 L 07/03/21 00:00 97.8 F 91 18 125/64 93 L 07/02/21 20:55 97.8 F 85 20 122/65 93 L 07/02/21 17:10 98.2 F 64 20 126/95 93 L 07/02/21 14:54 98.2 F 81 22 123/81 91 L 07/02/21 10:09 110 H 18 113/74 90 L Intake and Output 07/02/21 07/03/21 07/03/21 22:59 06:59 14:59 Intake Total 240 Balance 240 Intake: Oral 240 Other: Voiding Method Urinal Urinal # Voids 1 2 # Bowel Movements 1 Weight 71.5 kg - Constitutional General appearance: no acute distress Results 07/02/21 06:07 07/02/21 06:07 Cardiac Enzymes 07/02/21 Range/Units 06:07 AST 79 H (17-59) U/L Lactate Dehydrogenase 1591 H (313-618) U/L Comprehensive Metabolic Panel 07/02/21 Range/Units 06:07 Sodium 133 L (137-145) mmol/L Potassium 3.6 (3.5-5.1) mmol/L Chloride 95 L (98-107) mmol/L Carbon Dioxide 29 (22-30) mmol/L BUN 20 (9-20) mg/dL Creatinine 0.76 (0.66-1.25) mg/dL Glucose 158 H (74-99) mg/dL Calcium 8.1 L (8.4-10.2) mg/dL AST 79 H (17-59) U/L ALT 61 H (4-49) U/L Alkaline Phosphatase 31 L (38-126) U/L Total Protein 5.3 L (6.3-8.2) g/dL Albumin 2.6 L (3.5-5.0) g/dL Current Medications Generic Name Dose Route Start Last Admin Trade Name Freq PRN Reason Stop Dose Admin Acetaminophen 650 mg 07/01/21 19:34 Acetaminophen Tab 325 Mg Tab PO Q6HR PRN Mild Pain or Fever > 100.5 Acetaminophen/Codeine Phosphate 1 each 07/01/21 19:34 Acetaminophen-Codeine 300-30mg Tab PO Q4HR PRN Moderate Pain Albuterol Sulfate 2 puff 07/01/21 19:34 Albuterol Hfa Inhaler INHALATION RT-Q6H PRN Shortness Of Breath Or Wheezing Albuterol Sulfate 2 puff 07/03/21 08:00 Albuterol Hfa Inhaler INHALATION RT-QID MARCY Ascorbic Acid 1,000 mg 07/02/21 09:00 07/02/21 09:00 Ascorbic Acid 500 Mg Tab PO 1,000 mg DAILY MARCY Administration Cholecalciferol 100 mcg 07/02/21 09:00 07/02/21 09:01 Cholecalciferol 25 Mcg (1000 Iu) Tablet PO 100 mcg DAILY MARCY Administration Dexamethasone Sodium Phosphate 6 mg 07/02/21 09:00 07/02/21 09:01 Dexamethasone Sod Phosphate 10 Mg/Ml 1 Ml Vial IV 07/11/21 09:01 6 mg DAILY MARCY Administration Enoxaparin Sodium 70 mg 07/03/21 08:00 Enoxaparin 80 Mg/0.8 Ml Syringe SQ Q12H MARCY Folic Acid 1 mg 07/02/21 09:00 07/02/21 09:00 Folic Acid 1 Mg Tab PO 1 mg DAILY MARCY Administration Furosemide 20 mg 07/02/21 09:15 07/02/21 20:44 Furosemide 10 Mg/Ml 2 Ml Vial IV 20 mg Q12HR MARCY Administration Lactated Ringer's 1,000 mls @ 75 mls/hr 07/01/21 19:45 07/02/21 20:43 Lactated Ringers IV 75 mls/hr .[id number] MARCY Administration Lorazepam 1 mg 07/01/21 19:40 Lorazepam 2 Mg/Ml Inj IV Q2HR PRN CIWA 8 or 9 Lorazepam 1 mg 07/01/21 19:40 Lorazepam 2 Mg/Ml Inj IV Q1HR PRN CIWA 10 to 15 Lorazepam 2 mg 07/01/21 19:40 Lorazepam 2 Mg/Ml Inj IV 07/03/21 19:41 Q10M PRN CIWA 16 or higher Metoprolol Tartrate 25 mg 07/01/21 21:00 07/02/21 20:44 Metoprolol Tartrate 25 Mg Tab PO 25 mg BID MARCY Administration Naloxone HCl 0.2 mg 07/01/21 19:29 Naloxone 0.4 Mg/Ml 1 Ml Vial IV Q2M PRN Opioid Reversal Ondansetron HCl 4 mg 07/01/21 19:34 Ondansetron 4 Mg/2 Ml Vial IVP Q8HR PRN Nausea And Vomiting Pantoprazole Sodium 40 mg 07/01/21 21:00 07/02/21 20:43 Pantoprazole 40 Mg/10 Ml Vial IVP 40 mg BID MARCY Administration Thiamine HCl 100 mg 07/02/21 09:00 07/02/21 12:07 Thiamine 100 Mg Tab PO 100 mg DAILY MARCY Administration Zinc Sulfate 220 mg 07/02/21 09:00 07/02/21 12:08 Zinc Sulfate 220 Mg Cap PO 220 mg DAILY MARCY Administration Intake and Output 07/02/21 07/03/21 07/03/21 22:59 06:59 14:59 Intake Total 240 Balance 240 Intake: Oral 240 Other: Voiding Method Urinal Urinal # Voids 1 2 # Bowel Movements 1 Weight 71.5 kg 07/02/21 06:07 07/02/21 06:07 Assessment and Plan Assessment: Assessment #1 COVID-19 pneumonia #2 atrial fibrillation with with a rapid ventricular response. This is new diagnosed with the patient #3 positive blood in the stool Plan #1 agree to continue the current medical regimen including the current dose of metoprolol as well as Lovenox #2 consider oral anticoagulation with whichever agent approved by the insurance company #3 follow-up on the echocardiogram #4 follow-up with the patient
[2021-07-03] MEDS: PANTOPRAZOLE 40 MG/10 ML VIAL IVP SCH ×2 (10:12→20:53)
[2021-07-03] MEDS: FUROSEMIDE 10 MG/ML 2 ML VIAL IV SCH ×2 (10:12→20:53)
[2021-07-03] MEDS: ASCORBIC ACID 500 MG TAB PO SCH (10:12)
[2021-07-03] MEDS: DEXAMETHASONE SOD PHOSPHATE 10 MG/ML 1 ML VIAL IV SCH (10:12)
[2021-07-03] MEDS: ZINC SULFATE 220 MG CAP PO SCH (10:12)
[2021-07-03] MEDS: METOPROLOL TARTRATE 25 MG TAB PO SCH ×2 (10:12→20:53)
[2021-07-03] MEDS: FOLIC ACID 1 MG TAB PO SCH (10:13)
[2021-07-03] MEDS: THIAMINE 100 MG TAB PO SCH (10:13)
[2021-07-03] MEDS: CHOLECALCIFEROL 25 MCG (1000 IU) TABLET PO SCH (10:13)
[2021-07-03] MEDS: LACTATED RINGERS 1,000 ML IV SCH (10:55)
--- NOTE | 2021-07-03 10:56 | P.PN ---
Subjective Progress Note Date: 07/03/21 Patient appears to be sweaty and anxious today, appears to have soiled the bed with urine. Oxygen requirement has increased. Labs today are still pending. Cardiology and pulmonology recommendations were reviewed and appreciated. Patient should be considered for IL-6 inhibitor. I did increase his Lovenox to therapeutic dosing today given his stable hemoglobin, A. fib with RVR, and hypercoagulable state in the context Covid. Patient has a significant alcohol history, but stopped drinking on June 18. Previously he had been drinking up to a bottle of scotch daily. Objective - Vital Signs Vital signs: Vital Signs Temp 97.9 F 07/03/21 08:00 Pulse 108 H 07/03/21 08:00 Resp 22 07/03/21 08:00 BP 128/65 07/03/21 08:00 Pulse Ox 94 L 07/03/21 08:00 Intake & Output 07/02/21 07/03/21 07/03/21 18:59 06:59 18:59 Intake Total 240 Balance 240 Weight 81.647 kg 71.5 kg Intake: Oral 240 Other: Voiding Method Urinal # Voids 2 1 # Bowel Movements 1 1 - Exam Gen: awake, alert, diaphoretic HEENT: normocephalic, atraumatic, good hearing acuity, moist mucous membranes Resp: good air exchange, breathing comfortably with no accessory muscle use CVS: good distal perfusion x 4, irregular rate and rhythm GI: soft, NTTP, ND : no SPT, no CVAT, tijerina catheter not present MSK: no pitting edema, no clubbing Neuro: non-focal, moving all extremities Psych: cooperative, euthymic mood - Labs CBC & Chem 7: 07/02/21 06:07 07/02/21 06:07 Labs: Abnormal Lab Results - Last 24 Hours (Table) 07/02/21 Range/Units 06:07 Ferritin 4819.0 H (22.0-322.0) ng/mL Assessment and Plan Assessment: COVID-19 pneumonitis, and unvaccinated individual Acute hypoxic respiratory failure -Decadron, albuterol every 6 and when necessary; day 09/02 -Zinc, vitamin C, vitamin D -pulmonary recs -Wean O2 as able -Not a candidate for Remdesivir secondary to duration of symptoms -Pulmonary hygiene -Follow inflammatory markers -consider initiation of baricitinib 07/03 P. New-onset A. fib with rapid ventricular response, now in NSR -started therapeutic lovenox 70mg BID -Telemetry -metoprolol 25 twice a day -cardio recs -Echocardiogram pending Hyponatremia, due to dehydration, improving -IV fluids -repeat in AM Transaminitis, improving -Likely secondary to alcohol use versus COVID-19 -Repeat liver enzymes in a.m. EtOH abuse -States no alcohol and the last week -CIWA protocol -Thiamine and folic acid Dark stools, resolved DVT prophylaxis: Lovenox Discussed with: Patient, nursing, Anticipated discharge date: Undetermined Anticipated discharge place: Home
[2021-07-03] MEDS: ENOXAPARIN 80 MG/0.8 ML SYRINGE SQ SCH ×2 (13:10→20:53)
--- NOTE | 2021-07-03 13:17 | P.PN ---
Subjective Progress Note Date: 07/03/21 Principal diagnosis: COVID-19 pneumonia This is a 71-year-old gentleman with no significant past medical history. He is a former smoker. No home medications. He presented here to the emergency room yesterday with bloody bowel movements for the past 7 days. He was also found to be hypoxemic with O2 saturations in the 80s. His daughter about that the patient appeared quite pale as well. White count 4.4. Hemoglobin 15.5. Lymphocytes 0.4. D-dimer 2.79. Sodium 133. Potassium 3.6. Creatinine 0.76. Glucose 158. Ferritin or thousand 819. AST 79. ALT 61. LDH 1591. C-reactive protein 19.0. Stool for occult blood was positive. Colbert virus by PCR also positive. Chest x-ray shows bilateral airspace disease. CT angiogram revealed no evidence of pulmonary embolism. There is peripheral groundglass pulmonary opacities consistent with COVID-19 pneumonia. Reactive mediastinal lymphadenopathy. He is seen today in the emergency room. He is currently sitting up in a stretcher. Awake and alert in no acute distress. He is requiring 9 L high flow nasal cannula to maintain O2 saturation at 88%. There was increased to 10 L now. The patient is not vaccinated. His symptoms started on 06/18/2021. The patient is seen today 07/03/2021 in follow-up on the selective care unit. He is currently sitting up in bed. Awake and alert in no acute distress. Chest x-ray did show significant bilateral patchy infiltrates left greater than right. He is currently maintaining O2 saturations in the 90s on 12 L high flow nasal cannula. He is afebrile. Hemodynamically stable. He is on Decadron, Lovenox, vitamin supplements. Objective - Vital Signs Vital signs: Vital Signs Temp 97.9 F 07/03/21 08:00 Pulse 108 H 07/03/21 08:00 Resp 22 07/03/21 08:00 BP 128/65 07/03/21 08:00 Pulse Ox 94 L 07/03/21 08:00 Intake & Output 07/02/21 07/03/21 07/03/21 18:59 06:59 18:59 Intake Total 240 Balance 240 Weight 81.647 kg 71.5 kg Intake: Oral 240 Other: Voiding Method Urinal # Voids 2 1 # Bowel Movements 1 1 - Exam GENERAL EXAM: Alert, 71-year-old gentleman, on 12 L high flow nasal cannula, com fortable in no apparent distress. HEAD: Normocephalic. EYES: Normal reaction of pupils, equal size. NOSE: Clear with pink turbinates. THROAT: No erythema or exudates. NECK: No masses, no JVD. CHEST: No chest wall deformity. LUNGS: Equal air entry with crackles in the bilateral bases. CVS: S1 and S2 normal with no audible murmur, regular rhythm. ABDOMEN: No hepatosplenomegaly, normal bowel sounds, no guarding or rigidity. SPINE: No scoliosis or deformity SKIN: No rashes CENTRAL NERVOUS SYSTEM: No focal deficits, tone is normal in all 4 extremities. EXTREMITIES: There is no peripheral edema. No clubbing, no cyanosis. Peripheral pulses are intact. - Labs CBC & Chem 7: 07/02/21 06:07 07/02/21 06:07 Assessment and Plan Assessment: 1 Acute hypoxemic respiratory failure secondary to COVID-19 pneumonia. Not v accinated. Symptoms started 06/18/2021. Outside the window for Remdesivir. Requiring 12 L high flow nasal cannula. Pro calcitonin 0.23. 2 Elevated inflammatory markers secondary to above 3 Melanotic stools with positive stool for occult blood. Hemoglobin 15.5. 4 Mild transaminitis secondary to above 5 Hyponatremia 6 Daily alcohol use 7 Former smoker Plan: The patient was seen and evaluated Currently on 12 L high flow nasal cannula Not qualifying for Baricitinib yet Continued on Lovenox, Decadron, vitamin supplements Titrate the FiO2 as tolerated We will continue to follow I, the cosigning physician, performed a history & physical examination of the patient. Lungs sounds coarse crackles in the bilateral bases. Maintaining good O2 saturations in the 90s on 12 L high flow nasal cannula. I discussed the assessment and plan of care with my nurse practitioner, Patricia Castro. I attest to the above note as dictated by her.
--- NOTE | 2021-07-03 14:01 | ECHOF ---
Referral Reason:chf, a fib MEASUREMENTS -------- HEIGHT: 177.8 cm WEIGHT: 81.6 kg BP: RVIDd: 2.1 cm (< 3.3) IVSd: 1.6 cm (0.6 - 1.1) LVIDd: 3.7 cm (3.9 - 5.3) LVPWd: 1.7 cm (0.6 - 1.1) IVSs: 1.7 cm LVIDs: 2.9 cm LVPWs: 2.3 cm Ao Diam: 4.3 cm (2.0 - 3.7) AV Cusp: 2.3 cm (1.5 - 2.6) LA Diam: 2.6 cm (2.7 - 3.8) MV EXCURSION: 13.015 mm (> 18.000) MV EF SLOPE: 51 mm/s (70 - 150) EPSS: 1.3 cm MV E Moises: 1.18 m/s MV DecT: 173 ms MV A Moises: 0.92 m/s MV E/A Ratio: 1.28 AR PHT: 746 ms RAP: 5.00 mmHg RVSP: 15.06 mmHg FINDINGS -------- This was a technically adequate study. The left ventricular size is normal. There is moderate concentric left ventricular hypertrophy. O verall left ventricular systolic function is low-normal with, an EF between 50 - 55 %. The right ventricle is normal in size. The left atrial size is normal. The right atrial size is normal. Aortic valve is trileaflet and is mildly thickened. There is moderate aortic regurgitation. Canno t rule out vegetation. The mitral valve is normal. Mild mitral regurgitation is present. The tricuspid valve appears structurally normal. Mild tricuspid regurgitation present. Right vent ricular systolic pressure is normal at < 35 mmHg. There is no pulmonic regurgitation present. The aortic root is dilated measuring 4.3 cm IVC Not well visulized. There is no pericardial effusion. CONCLUSIONS -------- 1. The left ventricular size is normal. 2. There is moderate concentric left ventricular hypertrophy. 3. Overall left ventricular systolic function is low-normal with, an EF between 50 - 55 %. 4. Aortic valve is trileaflet and is mildly thickened. 5. There is moderate aortic regurgitation. 6. Cannot rule out vegetation. 7. Mild mitral regurgitation is present. 8. Mild tricuspid regurgitation present. 9. The aortic root is dilated measuring 4.3 cm. 10. There is no pericardial effusion. [employer]SE[employer]OLD RE[employer]ATOR MECHANIC: Claudia Jaime RDCS
[2021-07-04] MEDS: LACTATED RINGERS 1,000 ML IV SCH ×2 (05:07→23:14)
--- NOTE | 2021-07-04 07:24 | XR ---
EXAMINATION TYPE: XR chest 1V portable DATE OF EXAM: 07/04/2021 6:42 AM COMPARISON:Chest radiographs from 07/01/2021 CLINICAL INDICATION:Male, 71 years old with history of COVID-19 pneumonia; TECHNIQUE: Frontal view of the chest. FINDINGS: Lungs/Pleura: Improved aeration of the lungs with persistent multifocal airspace opacities most prono unced in the left. No evidence of pneumothorax or pleural effusion. Pulmonary vascularity: Unremarkable. Heart/mediastinum: Cardiomediastinal silhouette is unremarkable. Musculoskeletal: No acute osseous pathology. IMPRESSION: Underaeration of the lungs with persistent predominantly left-sided airspace disease.
[2021-07-04 07:48] LABS: C Reactive Protein 4.8 mg/dL (<1.0)
--- NOTE | 2021-07-04 08:20 | P.PN ---
Subjective Progress Note Date: 07/04/21 Principal diagnosis: Paroxysmal atrial fibrillation The patient is a 71-year-old gentleman who was admitted to the hospital with COVID-19 a pneumonia. We requested to see the patient as a consult for further evaluation of atrial fibrillation with rapid ventricular response. This is a new diagnosis to the patient. The patient continues to be in atrial fibrillation was controlled heart rate. He is on beta moy with metoprolol. He is on anticoagulation was Lovenox twice a day at a therapeutic dose. He underwent an echocardiogram yesterday and that revealed normal left ventricular systolic function with poorly visualized aortic valve and evidence of aortic insufficiency at moderate drainage with possible vegetation on the aortic valve. The patient does need to undergo transesophageal echocardiogram in the next few days for further clarification. Meanwhile I will suggest obtained an infectious disease consult and starting the patient on antibiotic. Objective - Vital Signs Vital signs: Vital Signs Temp 98.2 F 07/04/21 00:00 Pulse 89 07/04/21 04:50 Resp 18 07/04/21 04:50 BP 122/66 07/04/21 04:50 Pulse Ox 96 07/04/21 04:50 Intake & Output 07/03/21 07/04/21 07/04/21 18:59 06:59 18:59 Intake Total 240 Balance 240 Weight 79.5 kg Intake: Oral 240 Other: Voiding Method Urinal # Voids 1 3 # Bowel Movements 1 - Labs CBC & Chem 7: 07/02/21 06:07 07/02/21 06:07 Labs: Abnormal Lab Results - Last 24 Hours (Table) 07/04/21 07/04/21 Range/Units 07:16 07:16 D-Dimer 0.90 H (<0.60) mg/L FEU Lactate Dehydrogenase 1249 H (313-618) U/L C-Reactive Protein 4.8 H (<1.0) mg/dL Assessment and Plan Assessment: Assessment #1 COVID-19 pneumonia #2 atrial fibrillation with controlled heart rate. This is a new diagnosis the patient #3 possible vegetation on the aortic valve with evidence of aortic insufficiency at moderate drainage #4 multiple comorbid conditions Plan #1 continue the current dose of Lovenox and consider oral anticoagulation down the line #2 continue the current dose of metoprolol #3 cluster transesophageal echocardiogram in the next few days #4 consider obtaining an infectious disease consult #5 follow-up with the patient
[2021-07-04] MEDS: ALBUTEROL HFA INHALER INHALATION SCH ×4 (08:43→19:46)
[2021-07-04] MEDS: THIAMINE 100 MG TAB PO SCH (09:24)
[2021-07-04] MEDS: PANTOPRAZOLE 40 MG/10 ML VIAL IVP SCH ×2 (09:24→20:07)
[2021-07-04] MEDS: DEXAMETHASONE SOD PHOSPHATE 10 MG/ML 1 ML VIAL IV SCH (09:24)
[2021-07-04] MEDS: FOLIC ACID 1 MG TAB PO SCH (09:24)
[2021-07-04] MEDS: CHOLECALCIFEROL 25 MCG (1000 IU) TABLET PO SCH (09:24)
[2021-07-04] MEDS: METOPROLOL TARTRATE 25 MG TAB PO SCH ×2 (09:24→20:07)
[2021-07-04] MEDS: ZINC SULFATE 220 MG CAP PO SCH (09:24)
[2021-07-04] MEDS: ASCORBIC ACID 500 MG TAB PO SCH (09:24)
[2021-07-04] MEDS: FUROSEMIDE 10 MG/ML 2 ML VIAL IV SCH ×2 (09:24→20:07)
[2021-07-04] MEDS: ENOXAPARIN 80 MG/0.8 ML SYRINGE SQ SCH ×2 (09:25→20:07)
--- NOTE | 2021-07-04 14:11 | P.PN ---
Subjective Progress Note Date: 07/04/21 Patient is doing well today, down to 11 L via high flow nasal cannula. Seen by cardiology, echocardiogram reviewed with poor visualization of the aortic valve, but this appears to be thickenedthey recommended ID consultation and repeated blood cultures. The plan to do a CATIA later the week. Patient himself reports improvement from yesterday. Objective - Vital Signs Vital signs: Vital Signs Temp 98.0 F 07/04/21 12:13 Pulse 94 07/04/21 12:13 Resp 18 07/04/21 12:14 BP 117/64 07/04/21 12:13 Pulse Ox 95 07/04/21 12:14 Intake & Output 07/03/21 07/04/21 07/04/21 18:59 06:59 18:59 Intake Total 240 240 Balance 240 240 Weight 79.5 kg Intake: Oral 240 240 Other: Voiding Method Urinal Bedside Commode Urinal # Voids 1 3 # Bowel Movements 1 - Exam Gen: awake, alert, diaphoretic HEENT: normocephalic, atraumatic, good hearing acuity, moist mucous membranes Resp: good air exchange, breathing comfortably with no accessory muscle use CVS: good distal perfusion x 4, irregular rate and rhythm GI: soft, NTTP, ND : no SPT, no CVAT, tijerina catheter not present MSK: no pitting edema, no clubbing Neuro: non-focal, moving all extremities Psych: cooperative, euthymic mood - Labs CBC & Chem 7: 07/02/21 06:07 07/02/21 06:07 Labs: Abnormal Lab Results - Last 24 Hours (Table) 07/04/21 07/04/21 Range/Units 07:16 07:16 D-Dimer 0.90 H (<0.60) mg/L FEU Lactate Dehydrogenase 1249 H (313-618) U/L C-Reactive Protein 4.8 H (<1.0) mg/dL Assessment and Plan Assessment: COVID-19 pneumonitis, and unvaccinated individual Acute hypoxic respiratory failure -Decadron, albuterol every 6 and when necessary; day / -Zinc, vitamin C, vitamin D -pulmonary recs -Wean O2 as able -Not a candidate for Remdesivir secondary to duration of symptoms -Pulmonary hygiene -Follow inflammatory markers P. New-onset A. fib with rapid ventricular response, now in NSR -started therapeutic lovenox 70mg BID -Telemetry -metoprolol 25 twice a day -cardio recs -Echocardiogram shows appropriate ejection fraction, no wall motion abnormality, possibly thickened aortic valve leaflet. Thickened aortic valve -Cardiology following, will do a CATIA later in the week -Blood cultures, pending -Hold off on antibiotics for now -ID consultation Hyponatremia, due to dehydration, improving -IV fluids -repeat in AM Transaminitis, improving -Likely secondary to alcohol use versus COVID-19 -Repeat liver enzymes in a.m. EtOH abuse -States no alcohol and the last week -CIWA protocol -Thiamine and folic acid Dark stools, resolved DVT prophylaxis: Lovenox Discussed with: Patient, nursing, Anticipated discharge date: Undetermined Anticipated discharge place: Home
--- NOTE | 2021-07-04 15:41 | P.PN ---
Subjective Progress Note Date: 07/04/21 Principal diagnosis: COVID-19 pneumonia This is a 71-year-old gentleman with no significant past medical history. He is a former smoker. No home medications. He presented here to the emergency room yesterday with bloody bowel movements for the past 7 days. He was also found to be hypoxemic with O2 saturations in the 80s. His daughter about that the patient appeared quite pale as well. White count 4.4. Hemoglobin 15.5. Lymphocytes 0.4. D-dimer 2.79. Sodium 133. Potassium 3.6. Creatinine 0.76. Glucose 158. Ferritin or thousand 819. AST 79. ALT 61. LDH 1591. C-reactive protein 19.0. Stool for occult blood was positive. Colbert virus by PCR also positive. Chest x-ray shows bilateral airspace disease. CT angiogram revealed no evidence of pulmonary embolism. There is peripheral groundglass pulmonary opacities consistent with COVID-19 pneumonia. Reactive mediastinal lymphadenopathy. He is seen today in the emergency room. He is currently sitting up in a stretcher. Awake and alert in no acute distress. He is requiring 9 L high flow nasal cannula to maintain O2 saturation at 88%. There was increased to 10 L now. The patient is not vaccinated. His symptoms started on 06/18/2021. The patient is seen today 07/03/2021 in follow-up on the selective care unit. He is currently sitting up in bed. Awake and alert in no acute distress. Chest x-ray did show significant bilateral patchy infiltrates left greater than right. He is currently maintaining O2 saturations in the 90s on 12 L high flow nasal cannula. He is afebrile. Hemodynamically stable. He is on Decadron, Lovenox, vitamin supplements. On 07/04/2021 patient seen in follow-up on selective care unit, he is resting comfortably in bed, he is currently on 11 L of oxygen his pulse ox is 96%. Lung sounds reveal diffuse crackles, his chest x-ray shows predominantly left-sided airspace disease. His been afebrile, he does get short of breath with exertion, but appears to be in no acute distress, no tachypnea, no increased work of breathing. Remains on Decadron 6 mg daily, he is on prophylactic dose of Lovenox and he was started on IV Lasix 20 mg IV push every 12 hours, he is also receiving lactated Ringer's which can be turned down to KVO. He has had no acute events overnight. Not fluid balance is difficult to estimate. There is no accurate intake and outputs recorded. Cardiology is following for new onset of atrial fibrillation with rapid ventricular response. He was started on a beta moy with metoprolol, and his echocardiogram revealed preserved LV f unction with the possibility of vegetation on the aortic valve however there is no immediate plans for transesophageal echocardiogram at this time. Blood cultures have been ordered. ESR level is pending. Objective - Vital Signs Vital signs: Vital Signs Temp 98.0 F 07/04/21 12:13 Pulse 94 07/04/21 12:13 Resp 18 07/04/21 14:10 BP 117/64 07/04/21 12:13 Pulse Ox 95 07/04/21 12:14 Intake & Output 07/03/21 07/04/21 07/04/21 18:59 06:59 18:59 Intake Total 240 240 Balance 240 240 Weight 79.5 kg Intake: Oral 240 240 Other: Voiding Method Urinal Bedside Commode Urinal # Voids 1 3 2 # Bowel Movements 1 - Exam GENERAL EXAM: Alert, very pleasant, 71-year-old white male, currently on 11 L of oxygen with a pulse ox of 96% comfortable in no apparent distress. HEAD: Normocephalic/atraumatic. EYES: Normal reaction of pupils, equal size. Conjunctiva pink, sclera white. NOSE: Clear with pink turbinates. THROAT: No erythema or exudates. NECK: No masses, no JVD, no thyroid enlargement, no adenopathy. CHEST: No chest wall deformity. Symmetrical expansion. LUNGS: Equal air entry with diminished breath sounds and diffuse crackles CVS: Regular rate and rhythm, normal S1 and S2, no gallops, no murmurs, no rubs ABDOMEN: Soft, nontender. No hepatosplenomegaly, normal bowel sounds, no guarding or rigidity. EXTREMITIES: No clubbing, no edema, no cyanosis, 2+ pulses and upper and lower extremities. MUSCULOSKELETAL: Muscle strength and tone normal. SPINE: No scoliosis or deformity SKIN: No rashes CENTRAL NERVOUS SYSTEM: Alert and oriented -3. No focal deficits, tone is normal in all 4 extremities. PSYCHIATRIC: Alert and oriented -3. Appropriate affect. Intact judgment and insight. - Labs CBC & Chem 7: 07/02/21 06:07 07/02/21 06:07 Labs: Abnormal Lab Results - Last 24 Hours (Table) 07/04/21 07/04/21 Range/Units 07:16 07:16 D-Dimer 0.90 H (<0.60) mg/L FEU Lactate Dehydrogenase 1249 H (313-618) U/L C-Reactive Protein 4.8 H (<1.0) mg/dL Assessment and Plan Plan: Assessment: #1. Acute hypoxic respiratory failure secondary to acute COVID-19 pneumonia, patient is on none vaccinated are dulled with onset of symptoms on 06/18/2021. Patient was outside the window for Remdesivir at presentation. Currently requiring 11 L of high flow nasal cannula. Being treated supportively with Decadron, and he is on anticoagulation #2. New onset A. fib with RVR, was started on metoprolol and Lovenox was increased to therapeutic dose at 70 mg twice daily, back into sinus rhythm #3. Possible vegetation on aortic valve, blood cultures are pending #4. Hyponatremia due to dehydration, improving #5. Transaminitis, improving #6. EtOH abuse, on [facility] protocol #7. Dark stools resolved Plan: Continue current medical treatments Continue Decadron, continue anticoagulation continue COVID-19 multivitamins Continue rate control and anticoagulation per cardiology There is questionable aortic valve vegetation on the echocardiogram, please refer to cardiology note, blood cultures are pending, ID service is consulted Weaning FiO2 to keep O2 sats ration is at or above 90% Currently down to 9 L No worsening dyspnea We'll continue to follow I performed a history & physical examination of the patient and discussed their management with my nurse practitioner, Marlen Garcia. I reviewed the nurse practitioner's note and agree with the documented findings and plan of care. Lung sounds are positive for dale crackles throughout the lung marcelo. The findings and the impression was discussed with the patient. I attest to the documentation by the nurse practitioner. Time with Patient: Less than 30
[2021-07-05 07:17] LABS: Basophils # (A) 0.1 k/uL (0-0.2); Basophils % (A) 1 %; Eosinophils % (A) 0 %; HCT 47.1 % (39.0-53.0); HGB 16.1 gm/dL (13.0-17.5); Lymphocytes # (A) 0.7 k/uL (1.0-4.8); Lymphocytes % (A) 7 %; MCH 33.3 pg (25.0-35.0); MCHC 34.2 g/dL (31.0-37.0); MCV 97.4 fL (80.0-100.0); Mean Platelet Volume 8.2; Monocytes # (A) 0.2 k/uL (0-1.0); Monocytes % (A) 3 %; Neutrophils # (A) 7.8 k/uL (1.3-7.7); Neutrophils % (A) 86 %; Platelet Count 441 k/uL (150-450); RBC 4.83 m/uL (4.30-5.90); RDW 12.9 % (11.5-15.5)
[2021-07-05 07:41] LABS: ALT 87 U/L (4-49); AST 81 U/L (17-59); African American GFR (CKD) >90 (>60 ml/min/1.73 sqM); Albumin 2.8 g/dL (3.5-5.0); Alkaline Phosphatase 52 U/L (38-126); Anion Gap 10 mmol/L; Bilirubin, Delta 0.2 mg/dL (0.0-0.2); Bilirubin,Unconjugated 0.7 mg/dL (0.0-1.1); Blood Urea Nitrogen 25 mg/dL (9-20); C Reactive Protein 3.4 mg/dL (<1.0); Calcium 8.4 mg/dL (8.4-10.2); Carbon Dioxide 34 mmol/L (22-30); Chloride 93 mmol/L (98-107); Glucose 103 mg/dL (74-99); LDH 1298 U/L (313-618); Magnesium 2.6 mg/dL (1.6-2.3); Non-African American GFR(CKD) >90 (>60 ml/min/1.73 sqM); Potassium 3.5 mmol/L (3.5-5.1); Sodium 137 mmol/L (137-145); Total Bilirubin 0.9 mg/dL (0.2-1.3); Total Protein 5.8 g/dL (6.3-8.2)
[2021-07-05 08:33] LABS: Erythrocyte Sedimentation Rate 35 mm/hr (0-15)
--- NOTE | 2021-07-05 08:41 | P.CONS ---
History of Present Illness - Reason for Consult Consult date: 07/04/21 thickened aortic valve Requesting physician: Ancelmo Coker - Chief Complaint malanotic stools x 1 week - History of Present Illness History of present illness : Patient is 79-year-old male presenting to the hospital 3 days ago for evaluation of melanotic stool that been going on for about 7 days before presentation to the hospital patient on presentation to the hospital was noticed to be hypoxic requiring supplemental oxygen patient did have mild shortness of breath and a cough denies having any chest pain the patient denies any nausea no vomiting no abdominal pain no diarrhea patient did not have any fever during this hospital stay patient did have a normal white count but did have lymphopenia D-dimer was mildly elevated creatinine was normal liver enzymes are elevated CRP was elevated procalcitonin 0.03 magana PCR was positive patient did have a chest x-ray correlate for pneumonia congestive heart failure patient did have a CT angiogram of the chest no evidence of PE peripheral groundglass opacity reactive mediastinal lymphadenopathy patient also have a echocardiogram completed which has been read as mildly thickened aortic wall that has prompted this infectious disease consultation rule out endocarditis patient currently did not have any fever or any chills, patient did not have any skin lesions or ulcers patient is edentulous and he did not have any invasive procedures done on the GI or genitourinary tract in the last few weeks Review of system: CONSTITUTIONAL: Positive for weakness patient denies fever. EYES: No complaint. ENT: No complaint. RESPIRATORY: As per history of present illness. CARDIOVASCULAR: No complaint. GENITOURINARY: No complaint. GASTROINTESTINAL as per history of present illness. MUSCULOSKELETAL: No complaint. INTEGUMENTARY: No complaint. PSYCHOLOGIC: No complaint. ENDOCRINE: No complaint. NEUROLOGIC: No complaint. Past medical history : Reviewed, documented below Past surgical history : Reviewed, documented below Social history: Reviewed, documented below Medications: Reviewed, as documented below EXAMINATION: Vital sigans= Reviewed and documented below GENERAL DESCRIPTION: Elderly male lying in bed, no distress. No tachypnea or accessory muscle of respiration use. HEENT: Shows Pallor , no scleral icterus. Oral mucous membrane is dry. NECK: Trachea central, no thyromegaly. LUNGS: Unlabored breathing. Clear to auscultation anteriorly. No wheeze or crackle. HEART: S1, S2, regular rate and rhythm. No loud murmur ABDOMEN: Soft, no tenderness , guarding or rigidity EXTREMITIES: No edema of feet. SKIN: No rash, no masses palpable. NEUROLOGICAL: The patient is awake, alert, oriented x3, mood and affect normal. LABS AND RADIOLOGY: Reviewed results see below Assessment : 1-patient presented to hospital with melanotic stools and this patient did have an echocardiogram with evidence of mildly thickened aortic wall patient currently do not have any risk factors for endocarditis is not running any fever did not have an elevated white count 2-patient with a COVID-19 illness with no evidence of any secondary bacterial pneumonia Plan: 1-we will obtain blood cultures x2 2-we will check a sed rate 3-May benefit from CATIA 4-hold on any systemic antibiotic therapy at this point We will follow on clinical condition and cultures to further adjust medication if needed Thank you for this consultation we will follow the patient along with you Past Medical History Past Medical History: GERD/Reflux Additional Past Medical History / Comment(s): Murmur, ETOH abuse. History of Any Multi-Drug Resistant Organisms: None Reported Past Surgical History: Hernia Repair Additional Past Surgical History / Comment(s): L inguinal hernia repair. Past Anesthesia/Blood Transfusion Reactions: No Reported Reaction Smoking Status: Former smoker - Past Family History Father Family Medical History: Myocardial Infarction (OR) Additional Family Medical History / Comment(s): Father of a OR age 55 Mother Family Medical History: Diabetes Mellitus Medications and Allergies Home Medications Medication Instructions Recorded Confirmed Type No Known Home Medications 07/01/21 07/01/21 History Allergies Allergy/AdvReac Type Severity Reaction Status Date / Time No Known Allergies Allergy Verified 07/01/21 17:46 Physical Exam Vitals: Vital Signs Temp Pulse Resp BP Pulse Ox 07/04/21 14:10 18 07/04/21 12:14 18 95 07/04/21 12:13 98.0 F 94 18 117/64 98 07/04/21 09:15 97.8 F 95 18 126/87 91 L 07/04/21 04:50 89 18 122/66 96 07/04/21 00:00 98.2 F 71 19 106/71 92 L 07/03/21 20:50 98 F 83 17 120/64 93 L 07/03/21 16:00 97.8 F 90 20 106/64 91 L Intake and Output 07/03/21 07/04/21 07/04/21 22:59 06:59 14:59 Intake Total 240 240 Balance 240 240 Intake: Oral 240 240 Other: Voiding Method Urinal Urinal Bedside Commode Urinal # Voids 3 2 Weight 79.5 kg Results CBC & Chem 7: 07/05/21 06:22 07/05/21 06:22 Labs: Abnormal Lab Results - Last 24 Hours (Table) 07/04/21 07/04/21 Range/Units 07:16 07:16 D-Dimer 0.90 H (<0.60) mg/L FEU Lactate Dehydrogenase 1249 H (313-618) U/L C-Reactive Protein 4.8 H (<1.0) mg/dL
[2021-07-05] MEDS: METOPROLOL TARTRATE 25 MG TAB PO SCH ×2 (09:07→20:50)
[2021-07-05] MEDS: DEXAMETHASONE SOD PHOSPHATE 10 MG/ML 1 ML VIAL IV SCH (09:07)
[2021-07-05] MEDS: FOLIC ACID 1 MG TAB PO SCH (09:07)
[2021-07-05] MEDS: ASCORBIC ACID 500 MG TAB PO SCH (09:07)
[2021-07-05] MEDS: ZINC SULFATE 220 MG CAP PO SCH (09:07)
[2021-07-05] MEDS: PANTOPRAZOLE 40 MG/10 ML VIAL IVP SCH ×2 (09:07→20:50)
[2021-07-05] MEDS: THIAMINE 100 MG TAB PO SCH (09:07)
[2021-07-05] MEDS: CHOLECALCIFEROL 25 MCG (1000 IU) TABLET PO SCH (09:08)
[2021-07-05] MEDS: ALBUTEROL HFA INHALER INHALATION SCH ×4 (09:37→21:45)
[2021-07-05] MEDS: APIXABAN 5 MG TAB PO SCH ×2 (10:00→20:50)
[2021-07-05] MEDS: ENOXAPARIN 80 MG/0.8 ML SYRINGE SQ SCH (10:00)
[2021-07-05] MEDS: FUROSEMIDE 10 MG/ML 2 ML VIAL IV SCH (10:01)
--- NOTE | 2021-07-05 10:13 | P.PN ---
Subjective Progress Note Date: 07/05/21 Patient oxygen requirement is improving down to 6 L. Blood cultures pending. ID consult appreciated. Hold off on antibiotics for now. CATIA later this week. Objective - Vital Signs Vital signs: Vital Signs Temp 98.0 F 07/05/21 09:14 Pulse 67 07/05/21 09:14 Resp 18 07/05/21 09:15 BP 111/63 07/05/21 09:14 Pulse Ox 93 L 07/05/21 09:15 Intake & Output 07/04/21 07/05/21 07/05/21 18:59 06:59 18:59 Intake Total 240 200 Balance 240 200 Weight 77.5 kg Intake: Oral 240 200 Other: Voiding Method Bedside Commode Bedside Commode Bedside Commode Urinal Urinal Urinal # Voids 2 1 - Exam Gen: awake, alert HEENT: normocephalic, atraumatic, good hearing acuity, moist mucous membranes Resp: good air exchange, breathing comfortably with no accessory muscle use CVS: good distal perfusion x 4, irregular rate and rhythm GI: soft, NTTP, ND : no SPT, no CVAT, tijerina catheter not present MSK: no pitting edema, no clubbing Neuro: non-focal, moving all extremities Psych: cooperative, euthymic mood - Labs CBC & Chem 7: 07/05/21 06:22 07/05/21 06:22 Labs: Abnormal Lab Results - Last 24 Hours (Table) 07/05/21 07/05/21 07/05/21 Range/Units 06:22 06:22 06:22 Neutrophils # 7.8 H (1.3-7.7) k/uL Lymphocytes # 0.7 L (1.0-4.8) k/uL ESR 35 H (0-15) mm/hr D-Dimer 1.12 H (<0.60) mg/L FEU Chloride 93 L (98-107) mmol/L Carbon Dioxide 34 H (22-30) mmol/L BUN 25 H (9-20) mg/dL Creatinine 0.60 L (0.66-1.25) mg/dL Glucose 103 H (74-99) mg/dL Magnesium 2.6 H (1.6-2.3) mg/dL AST 81 H (17-59) U/L ALT 87 H (4-49) U/L Lactate Dehydrogenase 1298 H (313-618) U/L C-Reactive Protein 3.4 H (<1.0) mg/dL Total Protein 5.8 L (6.3-8.2) g/dL Albumin 2.8 L (3.5-5.0) g/dL Assessment and Plan Assessment: COVID-19 pneumonitis, and unvaccinated individual Acute hypoxic respiratory failure -Decadron, albuterol every 6 and when necessary; day 10/31 -Zinc, vitamin C, vitamin D -pulmonary recs -Wean O2 as able -Not a candidate for Remdesivir secondary to duration of symptoms -Pulmonary hygiene -Follow inflammatory markers P. New-onset A. fib with rapid ventricular response, now in NSR -started therapeutic lovenox 70mg BID -Telemetry -metoprolol 25 twice a day -cardio recs -Echocardiogram shows appropriate ejection fraction, no wall motion abnormality, possibly thickened aortic valve leaflet. Thickened aortic valve -Cardiology following, will do a CATIA later in the week -Blood cultures, pending -Hold off on antibiotics for now -ID consultation Hyponatremia, due to dehydration, improving -IV fluids -repeat in AM Transaminitis, improving -Likely secondary to alcohol use versus COVID-19 -Repeat liver enzymes in a.m. EtOH abuse -States no alcohol and the last week -CIWA protocol -Thiamine and folic acid Dark stools, resolved DVT prophylaxis: Lovenox Discussed with: Patient, nursing, Anticipated discharge date: Undetermined Anticipated discharge place: Home
--- NOTE | 2021-07-05 14:45 | P.PN ---
Subjective This is a 71-year-old male with past medical history former nicotine dependence and alcohol use. 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 We are consulted for new onset atrial fibrillation with RVR and thickened aortic valve. Patient presented to the emergency department with complaints of blood in stool, found to hypoxemic and Covid-19 positive. On admission patient was in atrial fibrillation with RVR. Echocardiogram revealed normal left ventricular systolic function 50- 55%, with poorly visualized aortic valve and evidence of aortic insufficiency moderate with possible vegetation on the aortic valve. Patient continues to be in atrial fibrillation heart rate are controlled. He denies any chest pain or palpitations. Shortness of breath at times. Labs reviewed. He is currently maintained on SQ lovenox, metoprolol tartrate 25 mg twice a day, Lasix IV 20mg BID. GENERAL: In no acute distress. NECK: Supple without JVD LUNGS: Respiration equal and unlabored. HEART: Irregular rate and rhythm without murmurs. S1 and S2 heard. EXTREMITIES: Normal range of motion, no edema. No clubbing or cyanosis. Peripheral pulses intact. ASSESSMENT New onset paroxysmal atrial fibrillation with RVR, [id number] score 1 Covid-19 pneumonia Acute hypoxic respiratory failure Transaminitis, improving History of ETOH abuse Dark stools, resolved PLAN -We will start Eliquis 5mg BID, consult case management for coverage -Continue metoprolol tartrate 25mg BID -Switch to PO Lasix 20mg BID -Blood cultures pending, if blood cultures are negative, no urgent need for CATIA, we will plan for CATIA as an outpatient after recovery from COVID-19 -On discharge patient to follow up with Dr. Metz Nurse Practitioner note has been reviewed, I agree with a documented findings and plan of care. Patient was seen and examined. Objective - Vital Signs Vital signs: Vital Signs Temp 98.0 F 07/05/21 11:57 Pulse 74 07/05/21 14:00 Resp 18 07/05/21 14:00 BP 115/79 07/05/21 11:57 Pulse Ox 97 07/05/21 11:58 Intake & Output 07/04/21 07/05/21 07/05/21 18:59 06:59 18:59 Intake Total 240 200 Balance 240 200 Weight 77.5 kg Intake: Oral 240 200 Other: Voiding Method Bedside Commode Bedside Commode Bedside Commode Urinal Urinal Urinal # Voids 2 1 - Labs CBC & Chem 7: 07/05/21 06:22 07/05/21 06:22 Labs: Abnormal Lab Results - Last 24 Hours (Table) 07/05/21 07/05/21 07/05/21 Range/Units 06:22 06:22 06:22 Neutrophils # 7.8 H (1.3-7.7) k/uL Lymphocytes # 0.7 L (1.0-4.8) k/uL ESR 35 H (0-15) mm/hr D-Dimer 1.12 H (<0.60) mg/L FEU Chloride 93 L (98-107) mmol/L Carbon Dioxide 34 H (22-30) mmol/L BUN 25 H (9-20) mg/dL Creatinine 0.60 L (0.66-1.25) mg/dL Glucose 103 H (74-99) mg/dL Magnesium 2.6 H (1.6-2.3) mg/dL AST 81 H (17-59) U/L ALT 87 H (4-49) U/L Lactate Dehydrogenase 1298 H (313-618) U/L C-Reactive Protein 3.4 H (<1.0) mg/dL Total Protein 5.8 L (6.3-8.2) g/dL Albumin 2.8 L (3.5-5.0) g/dL Microbiology - Last 24 Hours (Table) 07/04/21 11:18 Blood Culture - Preliminary Blood No Growth after 24 hours
[2021-07-05] MEDS: FUROSEMIDE 20 MG TAB PO SCH (16:51)
--- NOTE | 2021-07-05 16:52 | P.PN ---
Subjective Progress Note Date: 07/05/21 Principal diagnosis: Coronavirus associated pneumonia. This is a 71-year-old gentleman with no significant past medical history. He is a former smoker. No home medications. He presented here to the emergency room yesterday with bloody bowel movements for the past 7 days. He was also found to be hypoxemic with O2 saturations in the 80s. His daughter about that the patient appeared quite pale as well. White count 4.4. Hemoglobin 15.5. Lymphocytes 0.4. D-dimer 2.79. Sodium 133. Potassium 3.6. Creatinine 0.76. Glucose 158. Ferritin or thousand 819. AST 79. ALT 61. LDH 1591. C-reactive protein 19.0. Stool for occult blood was positive. Colbert virus by PCR also positive. Chest x-ray shows bilateral airspace disease. CT angiogram revealed no evidence of pulmonary embolism. There is peripheral groundglass pulmonary opacities consistent with COVID-19 pneumonia. Reactive mediastinal lymphadenopathy. He is seen today in the emergency room. He is currently sitting up in a stretcher. Awake and alert in no acute distress. He is requiring 9 L high flow nasal cannula to maintain O2 saturation at 88%. There was increased to 10 L now. The patient is not vaccinated. His symptoms started on 06/18/2021. The patient is seen today 07/03/2021 in follow-up on the selective care unit. He is currently sitting up in bed. Awake and alert in no acute distress. Chest x-ray did show significant bilateral patchy infiltrates left greater than right. He is currently maintaining O2 saturations in the 90s on 12 L high flow nasal cannula. He is afebrile. Hemodynamically stable. He is on Decadron, Lovenox, vitamin supplements. On 07/04/2021 patient seen in follow-up on selective care unit, he is resting comfortably in bed, he is currently on 11 L of oxygen his pulse ox is 96%. Lung sounds reveal diffuse crackles, his chest x-ray shows predominantly left-sided airspace disease. His been afebrile, he does get short of breath with exertion, but appears to be in no acute distress, no tachypnea, no increased work of breathing. Remains on Decadron 6 mg daily, he is on prophylactic dose of Lovenox and he was started on IV Lasix 20 mg IV push every 12 hours, he is also receiving lactated Ringer's which can be turned down to KVO. He has had no acute events overnight. Not fluid balance is difficult to estimate. There is no accurate intake and outputs recorded. Cardiology is following for new onset of atrial fibrillation with rapid ventricular response. He was started on a beta moy with metoprolol, and his echocardiogram revealed preserved LV function with the possibility of vegetation on the aortic valve however there is no immediate plans for transesophageal echocardiogram at this time. Blood cultures have been ordered. ESR level is pending. Progress note dated 07/05/2021. The patient is again seen today in room 369. The patient's on 4 L nasal cannula. He's not receiving any IV fluids. The patient does feel much better today. The patient has not receive vaccination against coronavirus. Saturations are 97% on 4 L, and hence, his oxygen can probably be titrated down a bit. Lab data today includes a white count of 9, hemoglobin 16.1, hematocrit 47.1, and a platelet count 441,000. D-dimer was 1.12. Sodium 137, potassium 3.5, chlorides 93, CO2 34, anion gap 10, BUN 25, and creatinine 0.6. LDH is 1298. C-reactive protein is 3.4. AST is 81 with an ALT of 87. Chest x-ray from yesterday shows primarily left-sided airspace disease. Objective - Vital Signs Vital signs: Vital Signs Temp 98.0 F 07/05/21 11:57 Pulse 74 07/05/21 14:00 Resp 18 07/05/21 14:00 BP 115/79 07/05/21 11:57 Pulse Ox 97 07/05/21 11:58 Intake & Output 07/04/21 07/05/21 07/05/21 18:59 06:59 18:59 Intake Total 240 200 Balance 240 200 Weight 77.5 kg Intake: Oral 240 200 Other: Voiding Method Bedside Commode Bedside Commode Bedside Commode Urinal Urinal Urinal # Voids 2 1 1 # Bowel Movements 1 - Exam No acute distress, oriented 3. Currently on 4 L nasal cannula. No respiratory distress, or use of accessory muscles. HEENT examination is grossly unremarkable. Neck supple. Full range of motion. No adenopathy thyromegaly or neck vein distention. Cardiovascular examination reveals regular rhythm rate. S1-S2 normal. No S3 or S4. No discernible murmur noted. Heart rate 74 bpm. Lungs reveal scattered bilateral rhonchi. No wheezes. No crackles. Breath sounds equal bilaterally. Abdomen soft bowel sounds are heard. No masses or tenderness. Extremities are intact. No cyanosis clubbing or edema. Skin is without rash or lesion. Neurologic examination is brief but nonfocal. - Labs CBC & Chem 7: 07/05/21 06:22 07/05/21 06:22 Labs: Abnormal Lab Results - Last 24 Hours (Table) 07/05/21 07/05/21 07/05/21 Range/Units 06:22 06:22 06:22 Neutrophils # 7.8 H (1.3-7.7) k/uL Lymphocytes # 0.7 L (1.0-4.8) k/uL ESR 35 H (0-15) mm/hr D-Dimer 1.12 H (<0.60) mg/L FEU Chloride 93 L (98-107) mmol/L Carbon Dioxide 34 H (22-30) mmol/L BUN 25 H (9-20) mg/dL Creatinine 0.60 L (0.66-1.25) mg/dL Glucose 103 H (74-99) mg/dL Magnesium 2.6 H (1.6-2.3) mg/dL AST 81 H (17-59) U/L ALT 87 H (4-49) U/L Lactate Dehydrogenase 1298 H (313-618) U/L C-Reactive Protein 3.4 H (<1.0) mg/dL Total Protein 5.8 L (6.3-8.2) g/dL Albumin 2.8 L (3.5-5.0) g/dL Microbiology - Last 24 Hours (Table) 07/04/21 11:18 Blood Culture - Preliminary Blood No Growth after 24 hours Assessment and Plan Assessment: #1. Acute hypoxic respiratory failure secondary to acute COVID-19 pneumonia, patient is on unvaccinated with onset of symptoms on 06/18/2021. Patient was outside the window for Remdesivir at presentation. Currently requiring 4 L of high flow nasal cannula. Being treated supportively with Decadron, and he is on anticoagulation. #2. New onset A. fib with RVR, was started on metoprolol and Lovenox was increased to therapeutic dose at 70 mg twice daily, back into sinus rhythm. #3. Possible vegetation on aortic valve, blood cultures are pending. #4. Hyponatremia due to dehydration, improving. #5. Transaminitis, improving. #6. EtOH abuse, on CIWA protocol. #7. Dark stools resolved. Plan: Plan dated 07/05/2021. The patient remains on Decadron. The patient has been weaned down to 4 L. Yesterday he was on 11 L high flow nasal O2. The patient appears to be breathing very easily. He denies any respiratory difficulty or distress. He remains on Eliquis, Decadron, and metoprolol. He is also receiving vitamin C, vitamin D3, and zinc. Additional recommendations and suggestions are forthcoming. Blood cultures are negative thus far. We will continue to follow make recommendations where appropriate. Clinically, the patient's feeling much better today. Time with Patient: Less than 30
[2021-07-05] MEDS: LACTATED RINGERS 1,000 ML IV SCH (18:22)
--- NOTE | 2021-07-05 22:05 | PN ---
PROGRESS NOTE DATE OF SERVICE: 07/05/2021 REASON FOR FOLLOWUP: Abnormal echo with thickened aortic wall and question of endocarditis. INTERVAL HISTORY: Patient is afebrile. The patient is breathing comfortably. Patient denies having any chest pain, shortness of breath. Occasional cough. No abdominal pain. No diarrhea. PHYSICAL EXAMINATION: Blood pressure 108/71, pulse of 94, temperature 97.9. He is 94% on 4 L nasal cannula. General description is an elderly male lying in bed in no distress. Respiratory system: Unlabored breathing, decreased intensity of breath sounds. Heart S1, S2. Regular rate and rhythm. Abdomen soft, no tenderness. LABS: Hemoglobin 16, white count of 9. D-dimer is down to 1.12, creatinine 0.60. DIAGNOSTIC IMPRESSION AND PLAN: Patient with abnormal echo with thickened mitral valve. clinically not behaving as endocarditis and no risk factors for it. We will monitor the patient closely on antibiotic therapy while waiting for the culture to finalize. Continue supportive care. MMODL / LIZANDRON: [id number] /
[2021-07-06 07:25] LABS: African American GFR (CKD) >90 (>60 ml/min/1.73 sqM); Anion Gap 1 mmol/L; Blood Urea Nitrogen 18 mg/dL (9-20); Calcium 8.2 mg/dL (8.4-10.2); Carbon Dioxide 35 mmol/L (22-30); Chloride 98 mmol/L (98-107); Glucose 92 mg/dL (74-99); Non-African American GFR(CKD) >90 (>60 ml/min/1.73 sqM); Potassium 3.6 mmol/L (3.5-5.1); Sodium 134 mmol/L (137-145)
[2021-07-06] MEDS: ALBUTEROL HFA INHALER INHALATION SCH ×2 (08:24→11:32)
[2021-07-06 08:59] VITALS: RESP 18; TEMP 98
[2021-07-06] MEDS: ASCORBIC ACID 500 MG TAB PO SCH (08:59)
[2021-07-06] MEDS: FUROSEMIDE 20 MG TAB PO SCH (08:59)
[2021-07-06] MEDS: PANTOPRAZOLE 40 MG/10 ML VIAL IVP SCH (08:59)
[2021-07-06] MEDS: THIAMINE 100 MG TAB PO SCH (08:59)
[2021-07-06] MEDS: DEXAMETHASONE SOD PHOSPHATE 10 MG/ML 1 ML VIAL IV SCH (08:59)
[2021-07-06] MEDS: CHOLECALCIFEROL 25 MCG (1000 IU) TABLET PO SCH (08:59)
[2021-07-06] MEDS: METOPROLOL TARTRATE 25 MG TAB PO SCH (09:00)
[2021-07-06] MEDS: FOLIC ACID 1 MG TAB PO SCH (09:00)
[2021-07-06] MEDS: ZINC SULFATE 220 MG CAP PO SCH (09:00)
[2021-07-06] MEDS: APIXABAN 5 MG TAB PO SCH (09:00)
[2021-07-06 12:03] VITALS: BP 140/79; PULSE 87
--- NOTE | 2021-07-06 12:10 | P.PN ---
Subjective This is a 71-year-old male with past medical history former nicotine dependence and alcohol use. 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 We are consulted for new onset atrial fibrillation with RVR and thickened aortic valve. Patient presented to the emergency department with complaints of blood in stool, found to hypoxemic and Covid-19 positive. On admission patient was in atrial fibrillation with RVR. Echocardiogram revealed normal left ventricular systolic function 50- 55%, with poorly visualized aortic valve and evidence of aortic insufficiency moderate with possible vegetation on the aortic valve. Patient continues to be in atrial fibrillation heart rate are controlled. He denies any chest pain or palpitations. Shortness of breath at times. Labs reviewed, sodium 134, potassium 3.6, BUN 18, serum creatinine 0.5. He is currently maintained on Eliquis 5mg BID, metoprolol tartrate 25 mg twice a day, Lasix PO 20mg BID GENERAL: In no acute distress. NECK: Supple without JVD LUNGS: Respiration equal and unlabored. HEART: Irregular rate and rhythm without murmurs. S1 and S2 heard. EXTREMITIES: Normal range of motion, no edema. ASSESSMENT New onset paroxysmal atrial fibrillation with RVR, [id number] score 1 Covid-19 pneumonia Acute hypoxic respiratory failure Transaminitis, improving History of ETOH abuse Dark stools, resolved PLAN -We will start Eliquis 5mg BID, consult case management for coverage, per case management patient's eliquis is covered with $42/month after deductible is met, patient will also receive a free month -Continue metoprolol tartrate 25mg BID and PO Lasix 20mg BID -Blood cultures negative growth to date, at this time no urgent need for CATIA, we will plan for CATIA as an outpatient after recovery from COVID-19 -On discharge patient to follow up with Dr. Dalal on 08/03/2021 at 3:15PM. -We will follow the patient on an as needed basis, please reconsult if needed. Nurse Practitioner note has been reviewed, I agree with a documented findings and plan of care. Patient was seen and examined. Objective - Vital Signs Vital signs: Vital Signs Temp 98.0 F 07/06/21 12:01 Pulse 87 07/06/21 12:01 Resp 18 07/06/21 12:01 BP 140/79 07/06/21 12:01 Pulse Ox 93 L 07/06/21 12:01 Intake & Output 07/05/21 07/06/21 07/06/21 18:59 06:59 18:59 Intake Total 400 Balance 400 Intake: Oral 400 Other: Voiding Method Bedside Commode Bedside Commode Urinal Urinal # Voids 1 1 # Bowel Movements 1 - Labs CBC & Chem 7: 07/05/21 06:22 07/06/21 05:53 Labs: Abnormal Lab Results - Last 24 Hours (Table) 07/06/21 Range/Units 05:53 Sodium 134 L (137-145) mmol/L Carbon Dioxide 35 H (22-30) mmol/L Creatinine 0.59 L (0.66-1.25) mg/dL Calcium 8.2 L (8.4-10.2) mg/dL Microbiology - Last 24 Hours (Table) 07/05/21 06:22 Blood Culture - Preliminary Blood No Growth after 24 hours 07/04/21 11:18 Blood Culture - Preliminary Blood No Growth after 24 hours
--- NOTE | 2021-07-06 12:49 | P.DS ---
Providers Date of admission: 07/01/21 19:41 Expected date of discharge: 07/06/21 Attending physician: Isaura Morales DO Consults: 07/01/21 17:22 Consult Physician Routine Consulting Provider: Porfirio Canela Consult Reason/Comments: covid 19, hypoxia Do you want consulting provider notified?: Yes 07/02/21 08:51 Consult Physician Routine Consulting Provider: Nixon Betancur Consult Reason/Comments: afib/rvr/covid Do you want consulting provider notified?: Yes 07/04/21 11:59 Consult Physician Routine Consulting Provider: Abdiaziz Bates Consult Reason/Comments: thickened aortic valve Do you want consulting provider notified?: Yes Primary care physician: Stated None Hospital Course: 71-year-old male admitted to the hospital with COVID-19 pneumonia overall gradually improved the patient still hypoxic on 4 L today the patient insisting he wants to go home Patient also was on CIWA protocol for alcohol withdrawals. Patient is stable today states that he is less short of breath Constitutional: No acute distress, conversant, pleasant Eyes: Anicteric sclerae, moist conjunctiva, no lid-lag PERRLA ENMT: NC/AT Oropharynx clear, no erythema, exudates Neck: Supple, FROM, no masses, or JVD No carotid bruits No thyromegaly Lungs: , no accessory muscle use Cardiovascular: Heart regular in rate and rhythm, No murmurs, gallops, or rubs No peripheral edema Abdominal: Soft Nontender, no guarding, rebound or rigidity Abdomen moving with respiration Normoactive bowel sounds No hepatomegaly, No splenomegaly No palpable mass No abdominal wall hernia noted Skin: Normal temperature, tone, texture, turgor No induration No subcutaneous nodules No rash, lesions No ulcers Extremities: No digital cyanosis No clubbing Pedal pulses intact and symmetrical Radial pulses intact and symmetrical Normal gait and station No calf tenderness Psychiatric:Alert and oriented to person, place and time Appropriate affect Intact judgement Neuro: Moves all extremities Discharge plan COVID-19 hypoxia Improved the patient is still on 4 L of oxygen term patient insisting he wants to go home Atrovent fibrillation new onset patient has been started on adequacies and Lopressor follow-up with cardiology as an outpatient Alcohol WITHDRAWALS Patient Condition at Discharge: Stable Plan - Discharge Summary Discharge Rx Participant: No New Discharge Prescriptions: New Apixaban [Eliquis] 5 mg PO BID 30 Days #60 tab Metoprolol Tartrate [Lopressor] 25 mg PO BID 30 Days #60 tab Cefdinir 300 mg PO Q12HR 7 Days #14 cap Dexamethasone [Decadron] 4 mg PO DAILY #5 tablet Discharge Medication List Apixaban [Eliquis] 5 mg PO BID 30 Days #60 tab 07/05/21 [Rx] Cefdinir 300 mg PO Q12HR 7 Days #14 cap 07/06/21 [Rx] Dexamethasone [Decadron] 4 mg PO DAILY #5 tablet 07/06/21 [Rx] Metoprolol Tartrate [Lopressor] 25 mg PO BID 30 Days #60 tab 07/06/21 [Rx] Follow up Appointment(s)/Referral(s): None,Stated [Primary Care Provider] - 1-2 days Josr Dalal MD [STAFF PHYSICIAN] - 08/03/21 3:15 pm Patient Instructions/Handouts: Coronavirus Disease 2019 (COVID-19), A-fib (Atrial Fibrillation) (IP) Activity/Diet/Wound Care/Special Instructions: Cost will be $42 after the deductible of $100 is met. 1st free month coupon to be applied in [facility]. Discharge Disposition: HOME SELF-CARE
--- NOTE | 2021-07-06 13:01 | PN ---
PROGRESS NOTE DATE OF SERVICE: 07/06/2021 REASON FOR FOLLOWUP: Abnormal echo and a question of endocarditis. INTERVAL HISTORY: The patient is afebrile. The patient is currently breathing comfortably. The patient denies having any chest pain or shortness of breath. Occasional cough. No vomiting. No abdominal pain or diarrhea. PHYSICAL EXAMINATION: Blood pressure 140/79 with a pulse of 87, temperature 98. He is 93% on 4 L nasal cannula. General description is an elderly male up in the bed in no distress. Respiratory system: Unlabored breathing, decreased intensity of breath sounds. No wheeze. Heart S1, S2. Regular rate and rhythm. Abdomen soft, no tenderness. LABS: Creatinine 0.59. Blood culture has been negative. DIAGNOSTIC IMPRESSION AND PLAN: Patient with abnormal echo, mildly thickened aortic , nonspecific, clinically not behaving as endocarditis. Patient is currently off antibiotic. Culture has been negative. Was out of the COVID isolation to confirm. Continue supportive care. MMODL / IJN: [id number] /
--- NOTE | 2021-07-06 14:02 | P.PN ---
Subjective Progress Note Date: 07/06/21 Principal diagnosis: Coronavirus associated pneumonia. This is a 71-year-old gentleman with no significant past medical history. He is a former smoker. No home medications. He presented here to the emergency room yesterday with bloody bowel movements for the past 7 days. He was also found to be hypoxemic with O2 saturations in the 80s. His daughter about that the patient appeared quite pale as well. White count 4.4. Hemoglobin 15.5. Lymphocytes 0.4. D-dimer 2.79. Sodium 133. Potassium 3.6. Creatinine 0.76. Glucose 158. Ferritin or thousand 819. AST 79. ALT 61. LDH 1591. C-reactive protein 19.0. Stool for occult blood was positive. Colbert virus by PCR also positive. Chest x-ray shows bilateral airspace disease. CT angiogram revealed no evidence of pulmonary embolism. There is peripheral groundglass pulmonary opacities consistent with COVID-19 pneumonia. Reactive mediastinal lymphadenopathy. He is seen today in the emergency room. He is currently sitting up in a stretcher. Awake and alert in no acute distress. He is requiring 9 L high flow nasal cannula to maintain O2 saturation at 88%. There was increased to 10 L now. The patient is not vaccinated. His symptoms started on 06/18/2021. The patient is seen today 07/03/2021 in follow-up on the selective care unit. He is currently sitting up in bed. Awake and alert in no acute distress. Chest x-ray did show significant bilateral patchy infiltrates left greater than right. He is currently maintaining O2 saturations in the 90s on 12 L high flow nasal cannula. He is afebrile. Hemodynamically stable. He is on Decadron, Lovenox, vitamin supplements. On 07/04/2021 patient seen in follow-up on selective care unit, he is resting comfortably in bed, he is currently on 11 L of oxygen his pulse ox is 96%. Lung sounds reveal diffuse crackles, his chest x-ray shows predominantly left-sided airspace disease. His been afebrile, he does get short of breath with exertion, but appears to be in no acute distress, no tachypnea, no increased work of breathing. Remains on Decadron 6 mg daily, he is on prophylactic dose of Lovenox and he was started on IV Lasix 20 mg IV push every 12 hours, he is also receiving lactated Ringer's which can be turned down to KVO. He has had no acute events overnight. Not fluid balance is difficult to estimate. There is no accurate intake and outputs recorded. Cardiology is following for new onset of atrial fibrillation with rapid ventricular response. He was started on a beta moy with metoprolol, and his echocardiogram revealed preserved LV function with the possibility of vegetation on the aortic valve however there is no immediate plans for transesophageal echocardiogram at this time. Blood cultures have been ordered. ESR level is pending. Progress note dated 07/05/2021. The patient is again seen today in room 369. The patient's on 4 L nasal cannula. He's not receiving any IV fluids. The patient does feel much better today. The patient has not receive vaccination against coronavirus. Saturations are 97% on 4 L, and hence, his oxygen can probably be titrated down a bit. Lab data today includes a white count of 9, hemoglobin 16.1, hematocrit 47.1, and a platelet count 441,000. D-dimer was 1.12. Sodium 137, potassium 3.5, chlorides 93, CO2 34, anion gap 10, BUN 25, and creatinine 0.6. LDH is 1298. C-reactive protein is 3.4. AST is 81 with an ALT of 87. Chest x-ray from yesterday shows primarily left-sided airspace disease. Progress note dated 07/06/2021. 71-year-old male, again seen in room 369. A she's currently on 4 L nasal cannula. He's not receiving any IV fluids. He appears to be relatively stable. The patient was never vaccinated against coronavirus. Recent laboratory data includes a sodium 134, potassium 3.6, chlorides 98, CO2 35, anion gap 1, BUN 18, creatinine 0.59. Blood cultures are currently negative. Most recent chest x- ray from July 04 is reviewed. Also the patient's medications are reviewed. Objective - Vital Signs Vital signs: Vital Signs Temp 98.0 F 07/06/21 12:01 Pulse 87 07/06/21 12:01 Resp 18 07/06/21 12:01 BP 140/79 07/06/21 12:01 Pulse Ox 93 L 07/06/21 12:01 Intake & Output 07/05/21 07/06/21 07/06/21 18:59 06:59 18:59 Intake Total 640 Balance 640 Intake: Oral 640 Other: Voiding Method Bedside Commode Bedside Commode Urinal Urinal # Voids 1 1 # Bowel Movements 1 - Exam No acute distress, oriented 3. Currently on 4 L nasal cannula. No respiratory distress, or use of accessory muscles. Saturations are 93% on 4 L. HEENT examination is grossly unremarkable. Neck supple. Full range of motion. No adenopathy thyromegaly or neck vein distention. Cardiovascular examination reveals regular rhythm rate. S1-S2 normal. No S3 or S4. No discernible murmur noted. Heart rate 87 bpm. Lungs reveal scattered bilateral rhonchi. No wheezes. No crackles. Breath sounds equal bilaterally. Abdomen soft bowel sounds are heard. No masses or tenderness. Extremities are intact. No cyanosis clubbing or edema. Skin is without rash or lesion. Neurologic examination is brief but nonfocal. - Labs CBC & Chem 7: 07/05/21 06:22 07/06/21 05:53 Labs: Abnormal Lab Results - Last 24 Hours (Table) 07/06/21 Range/Units 05:53 Sodium 134 L (137-145) mmol/L Carbon Dioxide 35 H (22-30) mmol/L Creatinine 0.59 L (0.66-1.25) mg/dL Calcium 8.2 L (8.4-10.2) mg/dL Microbiology - Last 24 Hours (Table) 07/04/21 11:18 Blood Culture - Preliminary Blood No Growth after 48 hours 07/05/21 06:22 Blood Culture - Preliminary Blood No Growth after 24 hours Assessment and Plan Assessment: #1. Acute hypoxic respiratory failure secondary to acute COVID-19 pneumonia, patient is on unvaccinated with onset of symptoms on 06/18/2021. Patient was outside the window for Remdesivir at presentation. Currently requiring 4 L of high flow nasal cannula. Being treated supportively with Decadron, and he is on anticoagulation. #2. New onset A. fib with RVR, was started on metoprolol and Lovenox was increased to therapeutic dose at 70 mg twice daily, back into sinus rhythm. #3. Possible vegetation on aortic valve, blood cultures are pending. #4. Hyponatremia due to dehydration, improving. #5. Transaminitis, improving. #6. EtOH abuse, on CIWA protocol. #7. Dark stools resolved. Plan: Plan dated 07/05/2021. The patient remains on Decadron. The patient has been weaned down to 4 L. Yesterday he was on 11 L high flow nasal O2. The patient appears to be breathing very easily. He denies any respiratory difficulty or distress. He remains on Eliquis, Decadron, and metoprolol. He is also receiving vitamin C, vitamin D3, and zinc. Additional recommendations and suggestions are forthcoming. Blood cultures are negative thus far. We will continue to follow make recommendations where appropriate. Clinically, the patient's feeling much better today. Plan dated 07/06/2021. Currently, the patient's on Eliquis, and Decadron. The Decadron can be converted to oral, and the patient can finish out four more doses, to give him a total of 10 days of Decadron. The patient should also be discharged on vitamin C, vitamin D3, and zinc. The rest of his medications are as usual medications. We will continue to follow the patient is currently now discharged. Again although it looks like he may be discharged, there may be another reason to keep him in the hospital. Additional recommendations and suggestions are for thcoming. Prognosis is guarded. Time with Patient: Less than 30
== END 2021-07-06 14:18 | disposition home or self-care (01) | DRG 177 ==
LOC: EC 15:37 → 3SCARD 19:41
PROVIDERS: ADMIT Internal Medicine; ATTEND Internal Medicine
DX: U07.1 COVID-19 (principal); J12.82 Pneumonia due to coronavirus disease 2019; J96.01 Acute respiratory failure with hypoxia; D68.59 Other primary thrombophilia; E87.1 Hypo-osmolality and hyponatremia; F10.239 Alcohol dependence with withdrawal, unspecified; E86.0 Dehydration; I35.1 Nonrheumatic aortic (valve) insufficiency; I48.0 Paroxysmal atrial fibrillation; K21.9 Gastro-esophageal reflux disease without esophagitis; R79.89 Other specified abnormal findings of blood chemistry; R74.01 Elevation of levels of liver transaminase levels; R59.0 Localized enlarged lymph nodes; R00.0 Tachycardia, unspecified; Z78.9 Other specified health status; Z79.01 Long term (current) use of anticoagulants; Z79.899 Other long term (current) drug therapy; Z82.49 Family history of ischemic heart disease and other diseases of the circulatory system; Z83.3 Family history of diabetes mellitus; Z87.891 Personal history of nicotine dependence
CPT/HCPCS: 36415; 71045; 71275; 80048; 80053; 80076; 82272; 82728; 83615; 83735; 83880; 84145; 84484; 85025; 85379; 85610; 85652; 85730; 86140; 86850; 86900; 86901; 87040; 87635; 93005; 93306; 94640; 96361; 96374; 99291